=== PATIENT | female | born 1960 | race Caucasian/White ===

== ENCOUNTER 2016-12-21 15:47 | Emergency (ER) | payer OTHER ==
[2016-12-21] MEDS ORDERED: HYDROmorphone 1 MG/ML 1 ML SYRINGE IVP STA (16:18)
[2016-12-21] MEDS ORDERED: ONDANSETRON 4 MG/2 ML VIAL IVP STA (16:18)
[2016-12-21] MEDS ORDERED: SODIUM CHLORIDE 0.9% 1,000 ML IV STA (16:18)
[2016-12-21 16:30] LABS: Basophils % (A) 0 %; CH 28.6; CHCM 33.6; Eosinophils # (A) 0.4 k/uL (0-0.7); Eosinophils % (A) 4 %; HCT 41.1 % (34.0-46.0); HDW 2.33; HGB 14.1 gm/dL (11.4-16.0); Luc % (Auto) 1; Lymphocytes # (A) 2.3 k/uL (1.0-4.8); Lymphocytes % (A) 24 %; MCH 29.2 pg (25.0-35.0); MCHC 34.2 g/dL (31.0-37.0); MCV 85.5 fL (80.0-100.0); Mean Platelet Volume 10.6; Monocytes # (A) 0.3 k/uL (0-1.0); Monocytes % (A) 3 %; Neutrophils # (A) 6.8 k/uL (1.3-7.7); Neutrophils % (A) 68 %; RBC 4.81 m/uL (3.80-5.40); RDW 13.6 % (11.5-15.5); WBC (Perox) 9.64
[2016-12-21 16:40] LABS: ALT 28 U/L (9-52); AST 26 U/L (14-36); Alkaline Phosphatase 81 U/L (38-126); Amylase 40 U/L (30-110); Anion Gap 10 mmol/L; Blood Urea Nitrogen 19 mg/dL (7-17); Calcium 9.3 mg/dL (8.4-10.2); Carbon Dioxide 25 mmol/L (22-30); Chloride 109 mmol/L (98-107); Glucose 87 mg/dL (74-99); Non-African American GFR(MDRD) >60 (>60 ml/min/1.73 sqM); Potassium 4.3 mmol/L (3.5-5.1); Sodium 144 mmol/L (137-145); Total Bilirubin 0.6 mg/dL (0.2-1.3); Total Protein 7.1 g/dL (6.3-8.2)
[2016-12-21 16:46] LABS: Appearance,Urine Clear (Clear); Bacteria,Urine Occasional /hpf; Bilirubin,Urine Negative (Negative); Glucose,Urine (UA) Negative (Negative); Ketones,Urine Negative (Negative); Leukocyte Esterase,Urine Large (Negative); Mucus,Urine Rare /hpf; Nitrite,Urine Negative (Negative); PH, Urine 5.5 (5.0-8.0); Particle Count 5680; Protein,Urine Negative (Negative); RBC,Urine 2 /hpf (0-5); Specific Gravity,Urine 1.015 (1.001-1.035); Squamous Epithelial Cell,Urine 1 /hpf (0-4); UA Billing (MACRO vs. MICRO) MICRO; Urobilinogen,Urine <2.0 mg/dL (<2.0); WBC,Urine 58 /hpf (0-5)
--- NOTE | 2016-12-21 16:52 | ED ---
Abdominal Pain HPI - General Chief Complaint: Abdominal Pain Stated Complaint: abdominal pain Time Seen by Provider: 12/21/16 16:11 Source: patient, RN notes reviewed Mode of arrival: ambulatory Limitations: no limitations - History of Present Illness Initial Comments: 56-year-old female presents to the emergency Department chief complaint of abdominal pain in periodic nausea vomiting. Patient states the pain is in the center of the abdomen and radiates to the back. Patient states that she recently did have an alcohol. Patient states the pain started last night. Patient ate that it will come and go at random. Patient states she's had HIDA scans that state that her gallbladder female who is it normally should but it does not meaning that she should have surgery so they have been holding off. Patient states his been no other surgeries on the abdomen. Patient denies any fever chills with this. Patient denies any chest pain or shortness of breath. Patient states she was concerned due to her symptoms so she thought that she should be evaluated. Patient denies any recent fever, chills, shortness of breath, chest pain, back pain, numbness or tingling, dysuria or hematuria, constipation or diarrhea, headaches or visual changes, or any other current symptoms. - Related Data Home Medications Medication Instructions Recorded Confirmed Loratadine [Claritin] 10 mg PO DAILY 12/21/16 12/21/16 Losartan-Hctz 50-12.5 mg [Hyzaar 1 tab PO DAILY 12/21/16 12/21/16 50-12.5] Pantoprazole Sodium [Protonix] 40 mg PO DAILY 12/21/16 12/21/16 Simvastatin [Zocor] 20 mg PO DAILY 12/21/16 12/21/16 Previous Rx's Medication Instructions Recorded Ciprofloxacin HCl [Cipro] 500 mg PO Q12HR #14 tablet 12/21/16 Allergies Allergy/AdvReac Type Severity Reaction Status Date / Time No Known Allergies Allergy Verified 12/21/16 16:10 Review of Systems ROS Statement: Those systems with pertinent positive or pertinent negative responses have been documented in the HPI. ROS Other: All systems not noted in ROS Statement are negative. Past Medical History Past Medical History: Hyperlipidemia, Hypertension History of Any Multi-Drug Resistant Organisms: None Reported Past Surgical History: Section, Tubal Ligation Past Psychological History: No Psychological Hx Reported Smoking Status: Former smoker Past Alcohol Use History: None Reported Past Drug Use History: None Reported General Exam - General Exam Comments Initial Comments: General: The patient is awake and alert, in no distress, and does not appear acutely ill. Eye: Pupils are equal, round and reactive to light, extra-ocular movements are intact; there is normal conjunctiva bilaterally. No signs of icterus. Ears, nose, mouth and throat: There are moist mucous membranes and no oral lesions. Neck: The neck is supple, there is no tenderness. Cardiovascular: There is a regular rate and rhythm. No murmur, rub or gallop is appreciated. Respiratory: Lungs are clear to auscultation, respirations are non-labored, breath sounds are equal. No wheezes, stridor, rales, or rhonchi. Gastrointestinal: Soft, non-distended, mild epigastric tenderness of the abdomen without masses or organomegaly noted. There is no rebound or guarding present. On the left CVA tenderness. Bowel sounds are unremarkable. Back: There is no tenderness to palpation in the midline. There is no obvious deformity. No rashes noted. Musculoskeletal: Normal ROM, no tenderness, There is no pedal edema. There is no calf tenderness or swelling. Sensation intact. Pulses equal bilaterally 2+. Neurological: CN II-XII intact, There are no obvious motor or sensory deficits. Coordination appears grossly intact. Speech is normal. Skin: Skin is warm and dry and no rashes or lesions are noted. Psychiatric: Cooperative, appropriate mood & affect, normal judgment. Limitations: no limitations Course Vital Signs 12/21/16 12/21/16 12/21/16 15:52 16:38 17:52 Temperature 97.8 F Pulse Rate 89 77 72 Respiratory 20 16 18 Rate Blood Pressure 161/73 170/85 165/70 O2 Sat by Pulse 99 95 95 Oximetry Medical Decision Making - Medical Decision Making 56-year-old female presents emergency Department chief complaint of abdominal pain nausea and vomiting as well as some lab work is reviewed as well as CAT scan. This time patient does have cholelithiasis however there is no white blood cell count patient does not have a positive Waterman sign. Patient however does have left flank pain and she does appear to have UTI. This time we do give patient Rocephin was started on antibiotics for home. We did discuss close follow-up return parameters and all the patient's questions. She stated that she understood and she is in agreement with the plan. This time the patient will be discharged.. - Lab Data Result diagrams: 12/21/16 16:14 12/21/16 16:14 Lab Results 12/21/16 12/21/16 12/21/16 Range/Units 16:14 16:14 16:30 WBC 10.0 (3.8-10.6) k/uL RBC 4.81 (3.80-5.40) m/uL Hgb 14.1 (11.4-16.0) gm/dL Hct 41.1 (34.0-46.0) % MCV 85.5 (80.0-100.0) fL MCH 29.2 (25.0-35.0) pg MCHC 34.2 (31.0-37.0) g/dL RDW 13.6 (11.5-15.5) % Plt Count 154 (150-450) k/uL Neutrophils % 68 % Lymphocytes % 24 % Monocytes % 3 % Eosinophils % 4 % Basophils % 0 % Neutrophils # 6.8 (1.3-7.7) k/uL Lymphocytes # 2.3 (1.0-4.8) k/uL Monocytes # 0.3 (0-1.0) k/uL Eosinophils # 0.4 (0-0.7) k/uL Basophils # 0.0 (0-0.2) k/uL Sodium 144 (137-145) mmol/L Potassium 4.3 (3.5-5.1) mmol/L Chloride 109 H (98-107) mmol/L Carbon Dioxide 25 (22-30) mmol/L Anion Gap 10 mmol/L BUN 19 H (7-17) mg/dL Creatinine 0.71 (0.52-1.04) mg/dL Est GFR (MDRD) Af Amer >60 (>60 ml/min/1.73 sqM) Est GFR (MDRD) Non-Af >60 (>60 ml/min/1.73 sqM) Glucose 87 (74-99) mg/dL Calcium 9.3 (8.4-10.2) mg/dL Total Bilirubin 0.6 (0.2-1.3) mg/dL AST 26 (14-36) U/L ALT 28 (9-52) U/L Alkaline Phosphatase 81 (38-126) U/L Total Protein 7.1 (6.3-8.2) g/dL Albumin 4.1 (3.5-5.0) g/dL Amylase 40 (30-110) U/L Lipase 66 (23-300) U/L Urine Color Yellow Urine Appearance Clear (Clear) Urine pH 5.5 (5.0-8.0) Ur Specific [place] 1.015 (1.001-1.035) Urine Protein Negative (Negative) Urine Glucose (UA) Negative (Negative) Urine Ketones Negative (Negative) Urine Blood Trace H (Negative) Urine Nitrite Negative (Negative) Urine Bilirubin Negative (Negative) Urine Urobilinogen <2.0 (<2.0) mg/dL Ur Leukocyte Esterase Large H (Negative) Urine RBC 2 (0-5) /hpf Urine WBC 58 H (0-5) /hpf Ur Squamous Epith Cells 1 (0-4) /hpf Urine Bacteria Occasional H (None) /hpf Urine Mucus Rare H (None) /hpf - EKG Data -: EKG Interpreted by Me 12/21/16 17:51 normal sinus rhythm 65 bpm, normal axis, no atopy, no S-T depressions or elevations, Disposition Clinical Impression: UTI (urinary tract infection), Abdominal pain, Gastritis, Cholelithiasis Disposition: HOME SELF-CARE Condition: Stable Instructions: Urinary Tract Infection in Women (ED), Abdominal Pain (ED) Additional Instructions: Please use medication as discussed. Please follow up with family doctor if symptoms have not improved over the next two days. Please return to the emergency room if your symptoms increase or worsen or for any other concerns. Prescriptions: Ciprofloxacin HCl [Cipro] 500 mg PO Q12HR #14 tablet Referrals: Сергей Farrar DO [Primary Care Provider] - 1-2 days Time of Disposition: 18:26
--- NOTE | 2016-12-21 17:14 | CT ---
EXAMINATION TYPE: CT abdomen pelvis wo con DATE OF EXAM: 12/21/2016 COMPARISON: NONE HISTORY: Burning sensation in the abdomen for [address] DLP: 1827.7 mGycm Examination of the solid and hollow viscera is limited given the lack of contrast. FINDINGS: LUNG BASES: No evidence for nodule. No evidence for infiltrate. LIVER/GB: There is evidence of cholelithiasis. No wall thickening or pericholecystic fluid. No space- occupying hepatic lesion. PANCREAS: No pancreatic mass identified. No inflammatory process seen. SPLEEN: No evidence for splenomegaly. No intrasplenic lesions seen. Splenic granulomas identified. ADRENALS: No adrenal nodules identified. No evidence for thickening. KIDNEYS: No evidence for renal mass. No nephrolithiasis. No hydronephrosis. BOWEL: Appendix has a normal appearance. No evidence of bowel obstruction. No inflammatory process. Lymph nodes: No evidence for adenopathy greater than 1 cm. Abdominal aorta: Atheromatous changes seen. No evidence for aneurysm. Genital organs: No significant abnormality. Other: No significant abnormality. IMPRESSION: ACUTE INTRA-ABDOMINAL PROCESS. CHOLELITHIASIS.
[2016-12-21] MEDS ORDERED: FAMOTIDINE 20 MG/2 ML VIAL IV STA (17:23)
[2016-12-21 17:53] VITALS: BP 165/70; PULSE 72; RESP 18
[2016-12-21 19:06] VITALS: TEMP 98
== END 2016-12-21 18:30 | disposition home or self-care (01) ==
LOC: EC 15:47
DX: K29.70 Gastritis, unspecified, without bleeding (principal); K80.20 Calculus of gallbladder without cholecystitis without obstruction; N39.0 Urinary tract infection, site not specified; I10 Essential (primary) hypertension; E78.5 Hyperlipidemia, unspecified; Z79.899 Other long term (current) drug therapy; Z87.891 Personal history of nicotine dependence
CPT/HCPCS: 99284; 96365; 96375 ×3; 96361; 36415; 93005; 80053; 82150; 83690; 85025; 81001; 74176; J2405; J0696; J1170

== ENCOUNTER 2017-01-15 09:54 | Day surgery (SDC) | payer OTHER ==
[2017-01-12 12:22] VITALS: BMI 47.6
[~2017-01-15 09:54] MED LIST: DEXAMETHASONE SOD PHOSPHATE 10 MG/ML 1 ML VIAL IV ONE; HEPARIN SODIUM,PORCINE 5,000 UNIT/ML 1 ML VIAL SQ ONE; HYDROmorphone 1 MG/ML 1 ML SYRINGE IVP PRN; LACTATED RINGERS 1,000 ML IV SCH; LIDOCAINE 1% 20 ML VIAL (10MG/ML) FOR IV START INTRADERMA PRN; ONDANSETRON 4 MG/2 ML VIAL IVP ONE; SCOPOLAMINE 1.5MG/72HR PATCH TRANSDERM ONE; ceFAZolin 2 GM in SODIUM CHLORIDE 0.9% 100 ML IVPB ONE
[2017-01-15] MEDS ORDERED: LACTATED RINGERS 1,000 ML IV ONE ×2 (10:24→12:11)
--- NOTE | 2017-01-15 10:49 | P.GSHP ---
History of Present Illness H&P Date: 01/15/17 Chief Complaint: Right upper quadrant pain This a 56-year-old female referred from Dr. Сергей Koenig. Patient rents were pain. Her recent ultrasound shows evidence of cholelithiasis. Past Medical History Past Medical History: GERD/Reflux, Hyperlipidemia, Hypertension, Osteoarthritis (OA) Additional Past Medical History / Comment(s): lesions on thyroid- is being watched History of Any Multi-Drug Resistant Organisms: None Reported Past Surgical History: Section, Tubal Ligation Past Anesthesia/Blood Transfusion Reactions: No Reported Reaction Smoking Status: Former smoker - Past Family History Mother Family Medical History: No Reported History Medications and Allergies Home Medications Medication Instructions Recorded Confirmed Type Loratadine [Claritin] 10 mg PO DAILY 12/21/16 01/12/17 History Losartan-Hctz 50-12.5 mg [Hyzaar 1 tab PO DAILY 12/21/16 01/12/17 History 50-12.5] Simvastatin [Zocor] 20 mg PO DAILY 12/21/16 01/12/17 History Allergies Allergy/AdvReac Type Severity Reaction Status Date / Time No Known Allergies Allergy Verified 01/12/17 12:10 Surgical - Exam Vital Signs Temp Pulse Resp BP Pulse Ox 97.8 F 85 18 161/90 99 01/15/17 10:23 01/15/17 10:23 01/15/17 10:23 01/15/17 10:23 01/15/17 10:23 - General well developed, no distress - Eyes PERRL - ENT normal pinna - Neck no masses - Respiratory normal expansion - Cardiovascular Rhythm: regular - Abdomen Abdomen: soft, non tender Assessment and Plan Plan: Right upper quadrant pain Cholelithiasis We'll perform laparoscopic cholecystectomy
[2017-01-15] MEDS ORDERED: NEOSTIGMINE 1 MG/ML 10 ML VIAL ONE (11:33)
[2017-01-15] MEDS ORDERED: MIDAZOLAM 2 MG/2 ML VIAL ONE (11:33)
[2017-01-15] MEDS ORDERED: GLYCOPYRROLATE 0.2 MG/ML 2 ML VIAL ONE (11:33)
[2017-01-15] MEDS ORDERED: PROPOFOL 10 MG/ML 20 ML VIAL IV ONE (11:33)
[2017-01-15] MEDS ORDERED: SODIUM CHLORIDE 0.9% 250 ML with ceFAZolin 2,000 MG IV ONE ×2 (11:33)
[2017-01-15] MEDS ORDERED: SUCCINYLCHOLINE CHLORIDE 100 MG/5 ML SYR IV ONE (11:33)
[2017-01-15] MEDS ORDERED: fentaNYL (PF) 50 MCG/ML 2 ML AMP ONE (11:33)
[2017-01-15] MEDS ORDERED: LIDOCAINE 1% INJ 10MG/ML (20 ML MDV) ONE (11:33)
[2017-01-15] MEDS ORDERED: ROCURONIUM BROMIDE 10 MG/ML 10 ML VIAL IV ONE (11:33)
[2017-01-15] MEDS ORDERED: KETOROLAC 30 MG/ML 1 ML VIAL ONE (11:33)
[2017-01-15] MEDS ORDERED: BUPIVACAIN-EPI 0.25%-1:200,000 30 ML VIAL SQ ONE (11:53)
--- NOTE | 2017-01-15 12:12 | P.OP ---
Date of Procedure: 01/15/17 Preoperative Diagnosis: Cholelithiasis Postoperative Diagnosis: Cholelithiasis Procedure(s) Performed: Laparoscopic cholecystectomy Implants: Anesthesia: JUAN MIGUEL Surgeon: Brigido Carmona Estimated Blood Loss (ml): 5 Pathology: other (Gallbladder) Condition: stable (Stable) Indications for Procedure: Operative Findings: Description of Procedure: The patient was placed on the operating table. The patient received a general endotracheal tube anesthesia. The patients abdomen was prepped and draped in the usual sterile fashion. Through an infraumbilical stab incision, the fascia of the anterior abdominal wall was grasped with a pair of Kochers and then the Veress needle was placed in the peritoneal cavity. Position of the Veress needle was confirmed with positive drop test. The abdomen was then insufflated. After adequate insufflation, the 10 mm trocar was placed in the peritoneal cavity. Following this the laparoscope was placed in the peritoneal cavity. The patient was placed in the head-up, right side up position and then a 5 mm trocar was placed in the right lateral and right subcostal position under direct visualization. A 8 mm trocar was placed in the epigastric position. The gallbladder was grasped in the fundus and infundibulum. Traction on the gallbladder was placed in the lateral and the cephalad positions. The triangle of Calot was visualized.. The cystic duct was bluntly dissected until the union of the cystic duct and common bile duct was seen. The cystic duct was then divided and sealed with the Harmonic scissors. A PDS Endoloop was then placed throughout the cystic duct stump. The cystic artery divided and sealed with the Harmonic scissors. The gallbladder was then removed from the liver bed using Harmonic scissors. The gallbladder was then extracted through the epigastric port site. Operative field was checked for any bleeding spots and Harmonic scissors was used to coagulate the liver bed. The abdomen was irrigated. The trocars were removed. The skin was closed using interrupted 3-0 Vicryl suture. Dermabond dressing were applied. The patient tolerated the procedure well.
[2017-01-15 12:31] VITALS: TEMP 97.7
[2017-01-15] MEDS ORDERED: KETOROLAC 30 MG/ML 1 ML VIAL IVP ONE (12:53)
[2017-01-15] MEDS ORDERED: HYDROcodone/APAP 7.5-325MG 1 EACH TAB PO ONE (13:19)
[2017-01-15 13:42] VITALS: BP 155/74; PULSE 67; RESP 16
== END 2017-01-15 13:54 | disposition home or self-care (01) ==
LOC: OR 09:54
PROVIDERS: ATTEND Surgery
DX: K80.10 Calculus of gallbladder with chronic cholecystitis without obstruction (principal); K21.9 Gastro-esophageal reflux disease without esophagitis; E78.5 Hyperlipidemia, unspecified; I10 Essential (primary) hypertension; Z87.891 Personal history of nicotine dependence; Z79.891 Long term (current) use of opiate analgesic; Z79.899 Other long term (current) drug therapy
CPT/HCPCS: 88304; 47562; J2250; J1644; J1100; J2710; J2405; J2001; J3010; J1885; J0690; J0330; J2704

== ENCOUNTER → 2017-02-16 | Outpatient (CLI) | payer OTHER ==
[2017-02-16 16:11] VITALS: BP 168/77; PULSE 79; RESP 20; TEMP 97.9; BMI 47.8
--- NOTE | 2017-02-16 16:16 | P.HPBAR ---
Bariatric H&P - History & Physicial H&P Date: 02/16/17 History & Physicial: Visit/CC: pursuing sleeve Patient initial contact: Initial weight: 102.058 kg Initial weight in pounds: 225.00 Height: 4 ft 9.5 in Initial BMI: 47.8 Last weight: Current weight: 102.058 kg Current weight in pounds: 225.00 Current BMI: 47.8 [place] body weight (based on NIH guidelines): 39.689 kg Excess body weight loss: 0.0% The patient is a 56 year-old F who presents for Bariatric Assessment. Patient presents today for new patient sleeve gastrectomy consultation. The patient's had lifetime problems obesity. Her BMI is 48. She is requesting sleeve gastrectomy. Review of Systems Constitutional: Reports as per HPI Past Medical History Past Medical History: GERD/Reflux, Hyperlipidemia, Hypertension, Osteoarthritis (OA) Additional Past Medical History / Comment(s): lesions on thyroid- is being watched History of Any Multi-Drug Resistant Organisms: None Reported Past Surgical History: Section, Tubal Ligation Past Anesthesia/Blood Transfusion Reactions: No Reported Reaction Smoking Status: Former smoker - Past Family History Mother Family Medical History: No Reported History Surgical - Exam Vital Signs Temp Pulse Resp BP 97.9 F 79 20 168/77 02/16/17 15:52 02/16/17 15:52 02/16/17 15:52 02/16/17 15:52 - General well developed, no distress - Eyes PERRL - Abdomen Abdomen: soft, non tender Bariatric Assessment & Plan Plan: Morbid obesity with BMI 48. Patient will be authorized for sleeve gastrectomy. We had a lengthy discussion regarding the risks and benefits of sleeve gastrectomy. She will follow-up in month. Bariatric Checklist Checklist: Plan: Checklist: EGD: 1. Hiatal hernia: 2. H. Pylori: HgbA1c: Vitamin D: Smoking: Former smoker Primary care physician referral: Dr Farrar Psychiatry clearance: Cardiology clearance: Sleep study: Diet journal: VTE risk score: VTE risk level: Rehab needs at discharge:
== END | disposition home or self-care (01) ==
LOC: BARWHC3 15:01
PROVIDERS: ATTEND Surgery
DX: E66.01 Morbid (severe) obesity due to excess calories (principal); K21.9 Gastro-esophageal reflux disease without esophagitis; E78.5 Hyperlipidemia, unspecified; I10 Essential (primary) hypertension; Z87.891 Personal history of nicotine dependence; Z68.42 Body mass index [BMI] 45.0-49.9, adult
CPT/HCPCS: 99201

== ENCOUNTER 2017-02-25 09:56 | Day surgery (SDC) | payer OTHER ==
[2017-02-20 13:17] VITALS: BMI 47.0
[~2017-02-25 09:56] MED LIST changes: -DEXAMETHASONE SOD PHOSPHATE 10 MG/ML 1 ML VIAL IV ONE; -HEPARIN SODIUM,PORCINE 5,000 UNIT/ML 1 ML VIAL SQ ONE; -HYDROmorphone 1 MG/ML 1 ML SYRINGE IVP PRN; +LACTATED RINGERS 1,000 ML IV ONE; -LACTATED RINGERS 1,000 ML IV SCH; -LIDOCAINE 1% 20 ML VIAL (10MG/ML) FOR IV START INTRADERMA PRN; -ONDANSETRON 4 MG/2 ML VIAL IVP ONE; -SCOPOLAMINE 1.5MG/72HR PATCH TRANSDERM ONE; -ceFAZolin 2 GM in SODIUM CHLORIDE 0.9% 100 ML IVPB ONE
[2017-02-25 10:22] VITALS: TEMP 98.7
[2017-02-25] MEDS ORDERED: LIDOCAINE 1% 20 ML VIAL (10MG/ML) FOR IV START INTRADERMA ONE (10:32)
[2017-02-25] MEDS ORDERED: PROPOFOL 10 MG/ML 20 ML VIAL IV ONE (11:40)
--- NOTE | 2017-02-25 11:41 | P.GSHP ---
History of Present Illness H&P Date: 02/25/17 Chief Complaint: GERD, morbid obesity This a 56-year-old female who presents today for EGD. She's had issues with GERD. Patient is morbidly obese with BMI of 47. She is undergoing workup for sleeve gastrectomy. Past Medical History Past Medical History: GERD/Reflux, Hyperlipidemia, Hypertension, Osteoarthritis (OA) Additional Past Medical History / Comment(s): lesions on thyroid- is being watched History of Any Multi-Drug Resistant Organisms: None Reported Past Surgical History: Section, Cholecystectomy, Tubal Ligation Past Anesthesia/Blood Transfusion Reactions: No Reported Reaction Smoking Status: Former smoker - Past Family History Mother Family Medical History: No Reported History Medications and Allergies Home Medications Medication Instructions Recorded Confirmed Type Loratadine [Claritin] 10 mg PO DAILY 12/21/16 02/25/17 History Losartan-Hctz 50-12.5 mg [Hyzaar 1 tab PO DAILY 12/21/16 02/20/17 History 50-12.5] Simvastatin [Zocor] 20 mg PO DAILY 12/21/16 02/25/17 History Biotin 10,000 mcg PO DAILY 02/20/17 02/25/17 History Glucosam/Chond/Hyalu/Cf Borate 1 each PO DAILY 02/20/17 02/25/17 History [Move Free Joint Health Tablet] Allergies Allergy/AdvReac Type Severity Reaction Status Date / Time No Known Allergies Allergy Verified 02/25/17 10:15 Surgical - Exam Vital Signs Temp Pulse Resp BP Pulse Ox 98.7 F 76 18 152/92 93 L 02/25/17 10:21 02/25/17 10:21 02/25/17 10:21 02/25/17 10:21 02/25/17 10:21 - General well developed, no distress - Eyes PERRL - ENT normal pinna - Neck no masses - Respiratory normal expansion - Cardiovascular Rhythm: regular - Abdomen Abdomen: soft, non tender Assessment and Plan Plan: GERD Morbid obesity. We'll perform EGD.
--- NOTE | 2017-02-25 11:54 | P.OP ---
Date of Procedure: 02/25/17 Preoperative Diagnosis: Morbid obesity GERD Postoperative Diagnosis: Antral gastritis Mild esophagitis No evidence of hiatal hernia Procedure(s) Performed: EGD Implants: Anesthesia: MAC Surgeon: Brigido Carmona Pathology: other (Antrum, esophagus) Condition: stable Disposition: PACU Indications for Procedure: Operative Findings: Description of Procedure: The patient's placed on the endoscopy table in the lateral position. She received IV sedation. The gastroscope placed oropharynx passed in the esophagus and the stomach. The scope was placed through the pylorus. The first second portion of the duodenum appeared normal. Scope was then brought back the antrum this was mildly inflamed. A biopsies performed. The scope was then retroflexed and the remainder stomach appeared normal. There was no significant hiatal hernia. The GE junction was at 47 is. The distal esophagus appeared minimally inflamed a biopsies performed. The proximal esophagus appeared normal. Scope was withdrawn for patient.
[2017-02-25 12:16] VITALS: BP 154/80; PULSE 65; RESP 18
== END 2017-02-25 12:35 | disposition home or self-care (01) ==
LOC: ORWHC2ENDO 09:56
PROVIDERS: ATTEND Surgery
DX: K29.50 Unspecified chronic gastritis without bleeding (principal); K21.0 Gastro-esophageal reflux disease with esophagitis; K20.0 Eosinophilic esophagitis; I10 Essential (primary) hypertension; E78.5 Hyperlipidemia, unspecified; M19.90 Unspecified osteoarthritis, unspecified site; E66.01 Morbid (severe) obesity due to excess calories; Z68.42 Body mass index [BMI] 45.0-49.9, adult; Z87.891 Personal history of nicotine dependence; Z79.899 Other long term (current) drug therapy
CPT/HCPCS: 88305; 88342; 43239; J2704

== ENCOUNTER → 2017-06-29 | Outpatient (CLI) | payer OTHER ==
[2017-06-29 15:53] VITALS: BMI 42.4
[2017-06-29 15:59] VITALS: BP 126/83; PULSE 66; TEMP 97.9
--- NOTE | 2017-06-29 17:04 | P.HPBAR ---
Bariatric H&P - History & Physicial H&P Date: 06/29/17 History & Physicial: Visit/CC: one month follow up Patient initial contact: Initial weight: 102.058 kg Initial weight in pounds: 224.99 Height: 4 ft 9.5 in Initial BMI: 47.8 Last weight: Current weight: 90.446 kg Current weight in pounds: 199.40 Current BMI: 42.4 [place] body weight (based on NIH guidelines): 39.689 kg Excess body weight loss: 18.6% The patient is a 56 year-old F who presents for Bariatric Assessment. Patient' s complaints of GERD. She denies a significant dysphagia. Past Medical History Past Medical History: GERD/Reflux, Hyperlipidemia, Hypertension, Osteoarthritis (OA) Additional Past Medical History / Comment(s): lesions on thyroid- is being watched History of Any Multi-Drug Resistant Organisms: None Reported Past Surgical History: Section, Cholecystectomy, Tubal Ligation Past Anesthesia/Blood Transfusion Reactions: No Reported Reaction Additional Past Anesthesia/Blood Transfusion Reaction / Comm: no hx blood transfusion. Smoking Status: Former smoker - Past Family History Mother Family Medical History: No Reported History Surgical - Exam Vital Signs Temp Pulse BP 97.9 F 66 126/83 06/29/17 15:57 06/29/17 15:57 06/29/17 15:57 - General well developed, no distress - Eyes PERRL - ENT normal pinna - Neck no masses - Respiratory normal expansion - Cardiovascular Rhythm: regular - Abdomen Abdomen: soft, non tender Bariatric Assessment & Plan Plan: Status post sleeve gastrectomy. Patient has GERD. Her esophagram performed today shows no evidence of any gastric sleeve obstruction. She'll be scheduled for EGD Bariatric Checklist Checklist: Plan: Checklist: EGD: 1. Hiatal hernia: 2. H. Pylori: HgbA1c: Vitamin D: Smoking: Former smoker Primary care physician referral: Dr Farrar Psychiatry clearance: Cardiology clearance: Sleep study: Diet journal: VTE risk score: VTE risk level: Rehab needs at discharge:
--- NOTE | 2017-06-29 17:23 | FL ---
EXAMINATION TYPE: FL barium swallow DATE OF EXAM: 06/29/2017 CLINICAL HISTORY: Dysphasia TECHNIQUE: A double contrast esophagram is performed utilizing air and barium. A total of 36 second s of fluoroscopic time was utilized during procedure. Approximately 15 images. COMPARISON: None FINDINGS: Appears to be no evidence of obstruction or extravasation. There is some mild irregularity at the GE junction which should be correlated with the patient's recent reported endoscopy to exclude mucosal abnormality. Contrast was seen to spill freely into the stomach and subsequently into small bowel. IMPRESSION: 1. There is prompt spillage of contrast from the esophagus into the stomach with no obstruction. Slig ht mucosal irregularity at the level of the GE junction noted which should be correlated with the pat ient's reported history of recent endoscopy.
== END | disposition home or self-care (01) ==
LOC: BARWHC3 14:33
PROVIDERS: ATTEND Surgery
DX: K21.9 Gastro-esophageal reflux disease without esophagitis (principal); E78.5 Hyperlipidemia, unspecified; I10 Essential (primary) hypertension; M19.90 Unspecified osteoarthritis, unspecified site; Z98.84 Bariatric surgery status; Z87.891 Personal history of nicotine dependence
CPT/HCPCS: 74220; 97803; Q9967; G0463; 99211

== ENCOUNTER 2017-07-02 10:48 | Day surgery (SDC) | payer OTHER ==
[~2017-07-02 10:48] MED LIST changes: -LACTATED RINGERS 1,000 ML IV ONE; +LACTATED RINGERS 1,000 ML IV SCH; +LIDOCAINE 1% 20 ML VIAL (10MG/ML) FOR IV START INTRADERMA PRN
[2017-07-02 11:17] VITALS: TEMP 97.5
[2017-07-02] MEDS ORDERED: LIDOCAINE 1% 20 ML VIAL (10MG/ML) FOR IV START INTRADERMA ONE (11:26)
[2017-07-02] MEDS ORDERED: PROPOFOL 10 MG/ML 20 ML VIAL IV ONE (11:52)
--- NOTE | 2017-07-02 11:58 | P.GSHP ---
History of Present Illness H&P Date: 07/02/17 Chief Complaint: Dysphagia, GERD This is a 56-year-old female who presents today for EGD the patient had complaints of dysphagia. She underwent recent sleeve gastrectomy. Past Medical History Past Medical History: GERD/Reflux, Hyperlipidemia, Hypertension, Osteoarthritis (OA) Additional Past Medical History / Comment(s): CURRENT: SEVERE REFLUX. lesions on thyroid- is being watched History of Any Multi-Drug Resistant Organisms: None Reported Past Surgical History: Section, Cholecystectomy, Tubal Ligation Additional Past Surgical History / Comment(s): 05.28.17 GASTRIC SLEEVE Past Anesthesia/Blood Transfusion Reactions: No Reported Reaction Additional Past Anesthesia/Blood Transfusion Reaction / Comment(s): no hx blood transfusion. Past Psychological History: No Psychological Hx Reported Smoking Status: Former smoker Past Alcohol Use History: Occasional Additional Past Alcohol Use History / Comment(s): quit smoking 2005, smoked for 30 yrs. 1ppd Past Drug Use History: None Reported - Past Family History Mother Family Medical History: No Reported History Medications and Allergies Home Medications Medication Instructions Recorded Confirmed Type Simvastatin [Zocor] 20 mg PO DAILY 12/21/16 07/02/17 History Multivitamins, Thera [Multivitamin 1 tab PO DAILY 05/25/17 07/02/17 History (formulary)] Hydrochlorothiazide 12.5 mg PO QAM 06/30/17 07/02/17 History Omeprazole [Omeprazole] 40 mg PO QAM 06/30/17 07/02/17 History Allergies Allergy/AdvReac Type Severity Reaction Status Date / Time No Known Allergies Allergy Verified 07/02/17 11:07 Surgical - Exam Vital Signs Temp Pulse Resp BP Pulse Ox 97.5 F L 65 18 116/74 95 07/02/17 11:16 07/02/17 11:16 07/02/17 11:16 07/02/17 11:16 07/02/17 11:16 - General well developed, no distress - Eyes PERRL - ENT normal pinna - Neck no masses - Respiratory normal expansion - Cardiovascular Rhythm: regular - Abdomen Abdomen: soft, non tender Assessment and Plan Assessment: Patient. We'll perform EGD.
--- NOTE | 2017-07-02 12:06 | P.OP ---
Date of Procedure: 07/02/17 Preoperative Diagnosis: GERD Postoperative Diagnosis: Mild antral gastritis Mild esophagitis No evidence of hiatal hernia Procedure(s) Performed: EGD Anesthesia: MAC Surgeon: Brigido Carmona Pathology: other (Antrum, esophagus) Condition: stable Disposition: PACU Description of Procedure: The patient's placed on the endoscopy table in the lateral position. She received IV sedation. The gastric was placed oropharynx and passed in the esophagus and into the stomach. The scope was then placed through the pylorus. The first and second portion of the duodenum appeared normal. Scope was then brought back the antrum and this was mildly inflamed. A biopsies performed. The scope was then brought back. Patient appears gastric sleeve. There appeared to be no evidence of any irritation inflammation or stricture of the gastric sleeve. The GE junction was at 47 is. There is known to the hiatal hernia. The distal esophagus appeared mildly inflamed a biopsies performed. The proximal esophagus. Normal. Scope was withdrawn for patient.
[2017-07-02 12:13] VITALS: RESP 16
[2017-07-02 12:27] VITALS: BP 122/74; PULSE 53
== END 2017-07-02 12:33 | disposition home or self-care (01) ==
LOC: ORWHC2ENDO 10:48
PROVIDERS: ATTEND Surgery
DX: K21.0 Gastro-esophageal reflux disease with esophagitis (principal); K29.50 Unspecified chronic gastritis without bleeding; M19.90 Unspecified osteoarthritis, unspecified site; I10 Essential (primary) hypertension; E78.5 Hyperlipidemia, unspecified; Z79.899 Other long term (current) drug therapy; Z87.891 Personal history of nicotine dependence; Z90.3 Acquired absence of stomach [part of]
CPT/HCPCS: 43239; 88305; 88312; J2704

== ENCOUNTER → 2017-09-11 | Outpatient (CLI) | payer OTHER ==
[2017-09-11 11:01] LABS: HCT 43.3 % (34.0-46.0); HGB 13.9 gm/dL (11.4-16.0); MCH 28.4 pg (25.0-35.0); MCHC 32.1 g/dL (31.0-37.0); MCV 88.4 fL (80.0-100.0); Platelet Count 150 k/uL (150-450); RDW 13.5 % (11.5-15.5)
[2017-09-11 11:37] LABS: T4, Free (Free Thyroxine) 1.32 ng/dL (0.78-2.19)
[2017-09-11 11:39] LABS: ALT 24 U/L (9-52); AST 21 U/L (14-36); Alkaline Phosphatase 88 U/L (38-126); Anion Gap 13 mmol/L; Blood Urea Nitrogen 14 mg/dL (7-17); Calcium 9.6 mg/dL (8.4-10.2); Carbon Dioxide 26 mmol/L (22-30); Chloride 104 mmol/L (98-107); Cholesterol 150 mg/dL (<200); Glucose 86 mg/dL (74-99); HDL Cholesterol 43 mg/dL (40-60); LDL Cholesterol,Calculated 78 mg/dL (0-99); Potassium 4.2 mmol/L (3.5-5.1); Sodium 143 mmol/L (137-145); Total Bilirubin 0.4 mg/dL (0.2-1.3); Total Protein 6.8 g/dL (6.3-8.2); Triglycerides 145 mg/dL (<150)
[2017-09-11 16:57] LABS: Vitamin D 25 Hydroxy 20.2 ng/mL (30.0-100.0)
[2017-09-14 07:06] LABS: Vitamin B1 65 ug/L (38-122)
[2017-09-15 05:46] LABS: Vitamin A 52 ug/dL (38-106)
== END | disposition home or self-care (01) ==
LOC: LABWHC1 10:36
PROVIDERS: ATTEND Family Medicine
DX: E78.5 Hyperlipidemia, unspecified (principal); E03.9 Hypothyroidism, unspecified; I10 Essential (primary) hypertension; Z98.84 Bariatric surgery status
CPT/HCPCS: 36415; 80053; 80061; 82306; 82607; 84425; 84439; 84443; 84590; 85027

== ENCOUNTER → 2017-09-14 | Outpatient (CLI) | payer OTHER ==
[2017-09-14 13:28] VITALS: BP 139/82; PULSE 67; RESP 16; TEMP 98.1; BMI 40.4
--- NOTE | 2017-09-14 16:53 | P.HPBAR ---
Bariatric H&P - History & Physicial H&P Date: 09/14/17 History & Physicial: Visit/CC: sleeve follow-up Patient initial contact: Initial weight: 102.058 kg Initial weight in pounds: 225.00 Height: 4 ft 9.5 in Initial BMI: 47.8 Last weight: Current weight: 86.183 kg Current weight in pounds: 190.00 Current BMI: 40.4 [place] body weight (based on NIH guidelines): 39.689 kg Excess body weight loss: 25.4% The patient is a 57 year-old F who presents for Bariatric Assessment. Patient presents today for sleeve gastrectomy fall. She's had some minimal GERD. She' s lost another 10 pounds. Past Medical History Past Medical History: GERD/Reflux, Hyperlipidemia, Hypertension, Osteoarthritis (OA) Additional Past Medical History / Comment(s): CURRENT: SEVERE REFLUX. lesions on thyroid- is being watched History of Any Multi-Drug Resistant Organisms: None Reported Past Surgical History: Section, Cholecystectomy, Tubal Ligation Additional Past Surgical History / Comment(s): 12.7.17 GASTRIC SLEEVE Past Anesthesia/Blood Transfusion Reactions: No Reported Reaction Additional Past Anesthesia/Blood Transfusion Reaction / Comm: no hx blood transfusion. Past Psychological History: No Psychological Hx Reported Smoking Status: Former smoker Past Alcohol Use History: Occasional Additional Past Alcohol Use History / Comment(s): quit smoking 2005, smoked for 30 yrs. 1ppd Past Drug Use History: None Reported - Past Family History Mother Family Medical History: No Reported History Surgical - Exam Vital Signs Temp Pulse Resp BP 98.1 F 67 16 139/82 09/14/17 13:26 09/14/17 13:26 09/14/17 13:26 09/14/17 13:26 - General well developed, no distress - Eyes PERRL - ENT normal pinna, normal nares - Neck no masses - Abdomen Abdomen: soft, non tender Bariatric Assessment & Plan Plan: Patient is doing well. She is under excellent weight loss. Her GERD is minimal will be observed. She'll follow-up in 4 weeks. Bariatric Checklist Checklist: Plan: Checklist: EGD: 1. Hiatal hernia: 2. H. Pylori: HgbA1c: Vitamin D: Smoking: Former smoker Primary care physician referral: Dr Farrar Psychiatry clearance: Cardiology clearance: Sleep study: Diet journal: VTE risk score: VTE risk level: Rehab needs at discharge:
== END | disposition home or self-care (01) ==
LOC: BARWHC3 12:46
PROVIDERS: ATTEND Surgery
DX: Z48.815 Encounter for surgical aftercare following surgery on the digestive system (principal); E66.01 Morbid (severe) obesity due to excess calories; Z87.891 Personal history of nicotine dependence; K21.9 Gastro-esophageal reflux disease without esophagitis; Z71.3 Dietary counseling and surveillance; Z68.41 Body mass index [BMI] 40.0-44.9, adult; Z98.84 Bariatric surgery status
CPT/HCPCS: 97803; G0463; 99211

== ENCOUNTER → 2017-10-07 | Outpatient (CLI) | payer OTHER ==
--- NOTE | 2017-10-07 10:40 | MM ---
Reason for exam: clinical finding. Last mammogram was performed 1 year and 5 months ago. History: Patient is postmenopausal. Family history of breast cancer in maternal grandmother. Physical Findings: Nurse did not find any significant physical abnormalities on exam. MG 3D Diag Mammo W/Cad HAYES Bilateral CC and MLO view(s) were taken. Prior study comparison: May 08, 2016, bilateral MG 3d screening mammo w/cad. May 02, 2011, bilateral digital screening mammo w/CAD. There are scattered fibroglandular densities. No significant new findings when compared with previous films. These results were verbally communicated with the patient and result sheet given to the patient on 10/07/17. ASSESSMENT: Benign, BI-RAD 2 RECOMMENDATION: Routine screening mammogram of both breasts in 1 year.
== END | disposition home or self-care (01) ==
LOC: RADMAMWWP 09:35
PROVIDERS: ATTEND Family Medicine
DX: N64.4 Mastodynia (principal)
CPT/HCPCS: 77066; G0279

== ENCOUNTER → 2017-10-26 | Outpatient (CLI) | payer OTHER ==
[2017-10-26 13:46] VITALS: BP 146/70; PULSE 62; RESP 16; TEMP 98.6; BMI 39.3
--- NOTE | 2017-10-26 15:26 | P.HPBAR ---
Bariatric H&P - History & Physicial H&P Date: 10/26/17 History & Physicial: Visit/CC: sleeve follow-up Patient initial contact: Initial weight: 102.058 kg Initial weight in pounds: 225.00 Height: 4 ft 9.5 in Initial BMI: 47.8 Last weight: Current weight: 83.971 kg Current weight in pounds: 185.13 Current BMI: 39.3 [place] body weight (based on NIH guidelines): 39.689 kg Excess body weight loss: 28.9% The patient is a 57 year-old F who presents for Bariatric Assessment. Patient presents today for sleeve gastric fall. She is doing quite well. She's had some mild GERD. Past Medical History Past Medical History: GERD/Reflux, Hyperlipidemia, Hypertension, Osteoarthritis (OA) Additional Past Medical History / Comment(s): CURRENT: SEVERE REFLUX. lesions on thyroid- is being watched History of Any Multi-Drug Resistant Organisms: None Reported Past Surgical History: Section, Cholecystectomy, Tubal Ligation Additional Past Surgical History / Comment(s): 12.7.17 GASTRIC SLEEVE Past Anesthesia/Blood Transfusion Reactions: No Reported Reaction Additional Past Anesthesia/Blood Transfusion Reaction / Comm: no hx blood transfusion. Past Psychological History: No Psychological Hx Reported Smoking Status: Former smoker Past Alcohol Use History: Occasional Additional Past Alcohol Use History / Comment(s): quit smoking 2005, smoked for 30 yrs. 1ppd Past Drug Use History: None Reported - Past Family History Mother Family Medical History: No Reported History Surgical - Exam Vital Signs Temp Pulse Resp BP 98.6 F 62 16 146/70 10/26/17 13:43 10/26/17 13:43 10/26/17 13:43 10/26/17 13:43 - General well developed, no distress - Eyes PERRL - ENT normal pinna - Neck no masses - Respiratory normal expansion - Cardiovascular Rhythm: regular - Abdomen Abdomen: soft, non tender Bariatric Assessment & Plan Plan: Testicle sleeve gastrectomy. Patient's had excellent weight loss. She'll follow-up in one month. her GERD is minimal and will be observed. Bariatric Checklist Checklist: Plan: Checklist: EGD: 1. Hiatal hernia: 2. H. Pylori: HgbA1c: Vitamin D: Smoking: Former smoker Primary care physician referral: Dr Farrar Psychiatry clearance: Cardiology clearance: Sleep study: Diet journal: VTE risk score: VTE risk level: Rehab needs at discharge:
== END | disposition home or self-care (01) ==
LOC: BARWHC3 13:06
PROVIDERS: ATTEND Surgery
DX: Z09 Encounter for follow-up examination after completed treatment for conditions other than malignant neoplasm (principal); K21.9 Gastro-esophageal reflux disease without esophagitis; E78.5 Hyperlipidemia, unspecified; I10 Essential (primary) hypertension; M19.90 Unspecified osteoarthritis, unspecified site; Z90.49 Acquired absence of other specified parts of digestive tract; Z98.51 Tubal ligation status; Z87.891 Personal history of nicotine dependence; Z98.84 Bariatric surgery status
CPT/HCPCS: 99211

== ENCOUNTER → 2017-11-30 | Outpatient (CLI) | payer OTHER ==
[2017-11-30 14:53] VITALS: BP 130/86; PULSE 67; RESP 16; TEMP 97.7; BMI 38.5
--- NOTE | 2017-11-30 15:06 | P.HPBAR ---
Bariatric H&P - History & Physicial H&P Date: 11/30/17 History & Physicial: Visit/CC: sleeve follow-up Patient initial contact: Initial weight: 102.058 kg Initial weight in pounds: 225.00 Height: 4 ft 9.5 in Initial BMI: 47.8 Last weight: 85 Current weight: 82.1 kg Current weight in pounds: 181.00 Current BMI: 38.5 [place] body weight (based on NIH guidelines): 39.689 kg Excess body weight loss: 31.9% The patient is a 57 year-old F who presents for Bariatric Assessment. They for sleeve gastrectomy follow-up. She has complaints of some hunger. She lost 4 pounds since her last visit. He's had some mild GERD symptoms. Past Medical History Past Medical History: GERD/Reflux, Hyperlipidemia, Hypertension, Osteoarthritis (OA) Additional Past Medical History / Comment(s): CURRENT: SEVERE REFLUX. lesions on thyroid- is being watched History of Any Multi-Drug Resistant Organisms: None Reported Past Surgical History: Section, Cholecystectomy, Tubal Ligation Additional Past Surgical History / Comment(s): 12.7.17 GASTRIC SLEEVE Past Anesthesia/Blood Transfusion Reactions: No Reported Reaction Additional Past Anesthesia/Blood Transfusion Reaction / Comm: no hx blood transfusion. Past Psychological History: No Psychological Hx Reported Smoking Status: Former smoker Past Alcohol Use History: Occasional Additional Past Alcohol Use History / Comment(s): quit smoking 2005, smoked for 30 yrs. 1ppd Past Drug Use History: None Reported - Past Family History Mother Family Medical History: No Reported History Surgical - Exam Vital Signs Temp Pulse Resp BP 97.7 F 67 16 130/86 11/30/17 14:51 11/30/17 14:51 11/30/17 14:51 11/30/17 14:51 - General well developed, no distress - Abdomen Abdomen: soft, non tender Bariatric Assessment & Plan Plan: S for sleeve yesterday. Patient's GERD symptoms are minimal and will be observed. She'll follow-up in 4 weeks. She'll see the dietitian today. Bariatric Checklist Checklist: Plan: Checklist: EGD: 1. Hiatal hernia: 2. H. Pylori: HgbA1c: Vitamin D: Smoking: Former smoker Primary care physician referral: Dr Farrar Psychiatry clearance: Cardiology clearance: Sleep study: Diet journal: VTE risk score: VTE risk level: Rehab needs at discharge:
== END | disposition home or self-care (01) ==
LOC: BARWHC3 14:25
PROVIDERS: ATTEND Surgery
DX: Z48.815 Encounter for surgical aftercare following surgery on the digestive system (principal); T73.0XXA Starvation, initial encounter; K21.9 Gastro-esophageal reflux disease without esophagitis; Z90.49 Acquired absence of other specified parts of digestive tract; Z98.890 Other specified postprocedural states; Z98.84 Bariatric surgery status; Z98.51 Tubal ligation status; Z87.891 Personal history of nicotine dependence
CPT/HCPCS: 97803; G0463; 99211

== ENCOUNTER 2018-01-11 04:30 | Emergency (ER) | payer OTHER ==
[2018-01-11] MEDS ORDERED: MORPHINE SULFATE 2 MG/ML SYRINGE IVP STA (05:32)
[2018-01-11] MEDS ORDERED: ONDANSETRON 4 MG/2 ML VIAL IVP STA (05:32)
[2018-01-11] MEDS ORDERED: SODIUM CHLORIDE 0.9% 1,000 ML IV STA (05:32)
[2018-01-11] MEDS ORDERED: MAG HYDROX/AL HYDROX/SIMETH 30 ML, HYOSCYAMINE ELIXIR 10 ML, CIMETIDINE HCL 300 MG, LID... PO STA ×4 (05:37)
[2018-01-11 06:29] LABS: Basophils % (A) 0 %; Eosinophils # (A) 0.2 k/uL (0-0.7); Eosinophils % (A) 2 %; HGB 15.7 gm/dL (11.4-16.0); Lymphocytes % (A) 18 %; MCH 28.8 pg (25.0-35.0); MCHC 32.6 g/dL (31.0-37.0); MCV 88.3 fL (80.0-100.0); Mean Platelet Volume 10.8; Monocytes # (A) 0.3 k/uL (0-1.0); Monocytes % (A) 3 %; Neutrophils # (A) 8.8 k/uL (1.3-7.7); Neutrophils % (A) 77 %; Platelet Count 140 k/uL (150-450); RBC 5.44 m/uL (3.80-5.40); RDW 12.8 % (11.5-15.5); WBC 11.5 k/uL (3.8-10.6)
[2018-01-11 06:39] LABS: Appearance,Urine Cloudy (Clear); Bilirubin,Urine Negative (Negative); Blood,Urine Trace (Negative); Calcium Oxalate Crystals,Urine Many /hpf; Color,Urine Yellow; Glucose,Urine (UA) Negative (Negative); Ketones,Urine Negative (Negative); Leukocyte Esterase,Urine Moderate (Negative); Mucus,Urine Rare /hpf; Nitrite,Urine Negative (Negative); Protein,Urine Negative (Negative); RBC,Urine 4 /hpf (0-5); Squamous Epithelial Cell,Urine 1 /hpf (0-4); Urobilinogen,Urine <2.0 mg/dL (<2.0); WBC,Urine 6 /hpf (0-5)
--- NOTE | 2018-01-11 06:43 | XR ---
EXAMINATION TYPE: XR KUB DATE OF EXAM: 01/11/2018 COMPARISON: NONE HISTORY: Abdominal pain TECHNIQUE: 2 views FINDINGS: There is no sign of intestinal obstruction or pneumoperitoneum. Fecal pattern is normal. Esthela ng bases are clear. There is no evidence of a mass. There are no pathologic calcifications over the kidneys. IMPRESSION: Nonacute abdomen.
[2018-01-11 06:48] LABS: ALT 28 U/L (9-52); AST 23 U/L (14-36); Albumin 4.1 g/dL (3.5-5.0); Alkaline Phosphatase 92 U/L (38-126); Amylase 52 U/L (30-110); Anion Gap 9 mmol/L; Blood Urea Nitrogen 19 mg/dL (7-17); Calcium 9.8 mg/dL (8.4-10.2); Carbon Dioxide 23 mmol/L (22-30); Chloride 109 mmol/L (98-107); Glucose 118 mg/dL (74-99); Lipase 61 U/L (23-300); Potassium 4.5 mmol/L (3.5-5.1); Sodium 141 mmol/L (137-145); Total Bilirubin 0.4 mg/dL (0.2-1.3)
--- NOTE | 2018-01-11 07:04 | ED ---
Abdominal Pain HPI - General Source: patient Mode of arrival: ambulatory Limitations: no limitations <Kal Nur - Last Filed: 01/11/18 07:26> <John Matute - Last Filed: 01/11/18 08:33> - General Chief Complaint: Abdominal Pain Stated Complaint: upper abd pain Time Seen by Provider: 01/11/18 05:29 - History of Present Illness Initial Comments: 57 years old female woke up with the abdominal pain pain is in epigastric area and the right upper quadrant area and she is nauseous, she stating pain is 10 over 10 he denies any diarrhea constipation no chest pain no shortness of breath no frequency urgency dysuria no symptoms of TIA or CVA (Kal Nur) - Related Data Home Medications Medication Instructions Recorded Confirmed Simvastatin [Zocor] 20 mg PO DAILY 12/21/16 12/01/17 Multivitamins, Thera [Multivitamin 1 tab PO DAILY 05/25/17 12/01/17 (formulary)] Hydrochlorothiazide 12.5 mg PO QAM 06/30/17 12/01/17 Omeprazole 40 mg PO QAM 06/30/17 12/01/17 Allergies Allergy/AdvReac Type Severity Reaction Status Date / Time No Known Allergies Allergy Verified 01/11/18 04:41 Review of Systems ROS Other: All systems not noted in ROS Statement are negative. <Kal Nur - Last Filed: 01/11/18 07:26> ROS Other: All systems not noted in ROS Statement are negative. <John Matute - Last Filed: 01/11/18 08:33> ROS Statement: Those systems with pertinent positive or pertinent negative responses have been documented in the HPI. Past Medical History Past Medical History: GERD/Reflux, Hyperlipidemia, Hypertension, Osteoarthritis (OA) Additional Past Medical History / Comment(s): CURRENT: SEVERE REFLUX. lesions on thyroid- is being watched History of Any Multi-Drug Resistant Organisms: None Reported Past Surgical History: Section, Cholecystectomy, Tubal Ligation Additional Past Surgical History / Comment(s): 05.28.17 GASTRIC SLEEVE Past Anesthesia/Blood Transfusion Reactions: No Reported Reaction Additional Past Anesthesia/Blood Transfusion Reaction / Comment(s): no hx blood transfusion. Past Psychological History: No Psychological Hx Reported Smoking Status: Former smoker Past Alcohol Use History: Occasional Past Drug Use History: None Reported - Past Family History Mother Family Medical History: No Reported History <Kal Nur - Last Filed: 01/11/18 07:26> General Exam Limitations: no limitations <Boom,Kal - Last Filed: 01/11/18 07:26> <John Matute - Last Filed: 01/11/18 08:33> - General Exam Comments Initial Comments: General: The patient is awake and severe distress stating pain is 10 over 10 Skin: Skin is warm and dry and no rashes or lesions are noted. Eye: Pupils are equal, round and reactive to light, extra-ocular movements are intact; there is normal conjunctiva bilaterally. Ears, nose, mouth and throat: There are moist mucous membranes and no oral lesions. Neck: The neck is supple, there is no tenderness or JVD. Cardiovascular: There is a regular rate and rhythm. No murmur, rub or gallop is appreciated. Respiratory: To auscultation bilateral, no wheezing no rhonchi no distress respiratory conley noticed Gastrointestinal: Tender over the right upper quadrant area, epigastric area and left upper quadrant area Back: There is no tenderness to palpation in the midline. There is no obvious deformity. Musculoskeletal: Normal ROM, no tenderness, There is no pedal edema. There is no calf tenderness or swelling. No cords were appreciated. Neurological: CN II-XII intact, Cranial nerves III through XII are intact. There are no obvious motor or sensory deficits. Coordination appears grossly intact. Speech is normal. Psychiatric: Cooperative, appropriate mood & affect, normal judgment. (Kal Nur) Course <Markos Nurhter - Last Filed: 01/11/18 07:26> <John Matute - Last Filed: 01/11/18 08:33> Vital Signs 01/11/18 04:38 Temperature 98.2 F Pulse Rate 64 Respiratory 18 Rate Blood Pressure 169/101 O2 Sat by Pulse 99 Oximetry Jaycee is reassessed at term 7 AM which she feels better but she still complaining about the pain in the upper abdomen, white count is 11.5, his metabolic panel is within normal range urinalysis pending will be was unremarkable. Considering she still have a considerable amount abdominal pain now quite and proceed with CT of the abdomen, will endorse to Dr Matute at 7am ( Kal Nur) Medical Decision Making - Lab Data Result diagrams: 01/11/18 06:19 01/11/18 06:19 <Kal Nur - Last Filed: 01/11/18 07:26> - Lab Data Result diagrams: 01/11/18 06:19 01/11/18 06:19 <John Matute - Last Filed: 01/11/18 08:33> - Medical Decision Making Patient's computed tomography scan of the abdomen and pelvis shows no acute abnormality. I went into reexamine the patient she stated she could still feels some pain but barely any at all. I spoke with Dr. Mathew Carmona wanted to see the patient in the clinic this afternoon I relayed this message to the patient and she was fine with going home now with the understanding that if the pain came back she would come back to the emergency department (John Matute) - Lab Data Lab Results 01/11/18 01/11/18 01/11/18 Range/Units 06:19 06:19 06:19 WBC 11.5 H (3.8-10.6) k/uL RBC 5.44 H (3.80-5.40) m/uL Hgb 15.7 (11.4-16.0) gm/dL Hct 48.0 H (34.0-46.0) % MCV 88.3 (80.0-100.0) fL MCH 28.8 (25.0-35.0) pg MCHC 32.6 (31.0-37.0) g/dL RDW 12.8 (11.5-15.5) % Plt Count 140 L (150-450) k/uL Neutrophils % 77 % Lymphocytes % 18 % Monocytes % 3 % Eosinophils % 2 % Basophils % 0 % Neutrophils # 8.8 H (1.3-7.7) k/uL Lymphocytes # 2.0 (1.0-4.8) k/uL Monocytes # 0.3 (0-1.0) k/uL Eosinophils # 0.2 (0-0.7) k/uL Basophils # 0.0 (0-0.2) k/uL Sodium 141 (137-145) mmol/L Potassium 4.5 (3.5-5.1) mmol/L Chloride 109 H (98-107) mmol/L Carbon Dioxide 23 (22-30) mmol/L Anion Gap 9 mmol/L BUN 19 H (7-17) mg/dL Creatinine 0.70 (0.52-1.04) mg/dL Est GFR (CKD-EPI)AfAm >90 (>60 ml/min/1.73 sqM) Est GFR (CKD-EPI)NonAf >90 (>60 ml/min/1.73 sqM) Glucose 118 H (74-99) mg/dL Calcium 9.8 (8.4-10.2) mg/dL Total Bilirubin 0.4 (0.2-1.3) mg/dL AST 23 (14-36) U/L ALT 28 (9-52) U/L Alkaline Phosphatase 92 (38-126) U/L Total Protein 7.0 (6.3-8.2) g/dL Albumin 4.1 (3.5-5.0) g/dL Amylase 52 (30-110) U/L Lipase 61 (23-300) U/L Urine Color Yellow Urine Appearance Cloudy H (Clear) Urine pH 6.0 (5.0-8.0) Ur Specific [place] 1.020 (1.001-1.035) Urine Protein Negative (Negative) Urine Glucose (UA) Negative (Negative) Urine Ketones Negative (Negative) Urine Blood Trace H (Negative) Urine Nitrite Negative (Negative) Urine Bilirubin Negative (Negative) Urine Urobilinogen <2.0 (<2.0) mg/dL Ur Leukocyte Esterase Moderate H (Negative) Urine RBC 4 (0-5) /hpf Urine WBC 6 H (0-5) /hpf Ur Squamous Epith Cells 1 (0-4) /hpf Calcium Oxalate Crystal Many H (None) /hpf Urine Mucus Rare H (None) /hpf Disposition <Kal Nur - Last Filed: 01/11/18 07:26> Is patient prescribed a controlled substance at d/c from ED?: No Time of Disposition: 08:33 <John Matute - Last Filed: 01/11/18 08:33> Clinical Impression: Abdominal pain Disposition: HOME SELF-CARE Condition: Good Instructions: Abdominal Pain (ED) Referrals: Сергей Farrar DO [Primary Care Provider] - 1-2 days
--- NOTE | 2018-01-11 08:05 | CT ---
EXAMINATION TYPE: CT abdomen pelvis w con DATE OF EXAM: 01/11/2018 COMPARISON: 12/21/2016 INDICATION: Upper abd pain DLP: 1254.5 mGycm, Automated exposure control for dose reduction was used. CONTRAST: 100 mL of Isovue 300. Study performed without Oral Contrast TECHNIQUE: Axial images were obtained from above the diaphragm to the pubic rami in the axial plane a t 5 mm thick sections. Reconstructed images are reviewed on the computer in the coronal plane. FINDINGS: Limited CT sections are obtained the lung bases. The lung bases are clear. Small hiatal hernia is p resent. Gastric sleeve surgery is evident. Coronary artery calcifications present. CT ABDOMEN: Liver: Normal Spleen: Normal Pancreas: Normal Adrenal glands: The adrenal glands are normal. Gallbladder: Patient is status post cholecystectomy. Common bile duct is at the upper limits of jarod l measuring 1.0 cm. Kidneys: No masses are evident. No hydronephrosis is present. No cysts are present. Delayed images were obtained through the kidneys, which remain unremarkable. Aorta: Vascular calcification is within the aorta. Inferior vena cava: Normal. CT PELVIS: Loops of bowel within the abdomen and pelvis are normal. Study is without oral contrast limiting bowel evaluation. Appendix: Not identified. No suspicious inflammatory changes are evident. Urinary bladder: Normal. Genitourinary structures: Uterus and adnexal regions appear within normal limits. No free fluid is wi thin the pelvis. Osseous structures: No suspicious lytic or sclerotic lesions. IMPRESSIONS: 1. No suspicious etiology to account for right upper quadrant pain.
[2018-01-11 08:44] VITALS: BP 153/67; PULSE 58; RESP 16; TEMP 98.8
== END 2018-01-11 08:43 | disposition home or self-care (01) ==
LOC: EC 04:30
DX: R10.11 Right upper quadrant pain (principal); R10.12 Left upper quadrant pain; R10.13 Epigastric pain; R11.0 Nausea; E78.5 Hyperlipidemia, unspecified; I10 Essential (primary) hypertension; Z87.891 Personal history of nicotine dependence; Z79.899 Other long term (current) drug therapy; Z90.49 Acquired absence of other specified parts of digestive tract
CPT/HCPCS: 36415; 80053; 82150; 83690; 85025; 81001; 74018; 74177; 87086; 99284; 96374; 96375; 96361 ×2; J2405; J2270; Q9967

== ENCOUNTER → 2018-01-11 | Outpatient (CLI) | payer OTHER ==
[2018-01-11 16:25] VITALS: BP 117/56; PULSE 64; TEMP 98.4; BMI 38.0
--- NOTE | 2018-01-12 11:07 | P.HPBAR ---
Bariatric H&P - History & Physicial H&P Date: 01/11/18 History & Physicial: Visit/CC: follow up visit Patient initial contact: Initial weight: 102.058 kg Initial weight in pounds: 225.00 Height: 5 ft 3.25 in Initial BMI: 39.5 Last weight: Current weight: 98.157 kg Current weight in pounds: 216.40 Current BMI: 38.0 [place] body weight (based on NIH guidelines): 52.73 kg Excess body weight loss: 7.9% The patient is a 57 year-old F who presents for Bariatric Assessment. Patient resents today for sleeve gastrectomy follow-up. Patient states that she has developed intermittent right upper quadrant epigastric pain. She that she see in the emergency room today. Her workup including CAT scan labs were normal. Patient states her pain is resolved currently. She's had minimal GERD. Past Medical History Past Medical History: GERD/Reflux, Hyperlipidemia, Hypertension, Osteoarthritis (OA) Additional Past Medical History / Comment(s): CURRENT: SEVERE REFLUX. lesions on thyroid- is being watched History of Any Multi-Drug Resistant Organisms: None Reported Past Surgical History: Section, Cholecystectomy, Tubal Ligation Additional Past Surgical History / Comment(s): 12.7.17 GASTRIC SLEEVE Past Anesthesia/Blood Transfusion Reactions: No Reported Reaction Additional Past Anesthesia/Blood Transfusion Reaction / Comm: no hx blood transfusion. Past Psychological History: No Psychological Hx Reported Smoking Status: Former smoker Past Alcohol Use History: Occasional Additional Past Alcohol Use History / Comment(s): quit smoking 2005, smoked for 30 yrs. 1ppd Past Drug Use History: None Reported - Past Family History Mother Family Medical History: No Reported History Surgical - Exam Vital Signs Temp Pulse BP 98.4 F 64 117/56 01/11/18 16:20 01/11/18 16:20 01/11/18 16:20 - General well developed, well nourished, no distress - Eyes PERRL - Abdomen Abdomen: soft, non tender Bariatric Assessment & Plan Plan: Intermittent epigastric right upper quadrant pain. Patient will be scheduled for EGD to evaluate for gastritis. Her GERD is minimal. Bariatric Checklist Checklist: Plan: Checklist: EGD: 1. Hiatal hernia: 2. H. Pylori: HgbA1c: Vitamin D: Smoking: Former smoker Primary care physician referral: Dr Farrar Psychiatry clearance: Cardiology clearance: Sleep study: Diet journal: VTE risk score: VTE risk level: Rehab needs at discharge:
== END | disposition home or self-care (01) ==
LOC: BARWHC3 12:54
PROVIDERS: ATTEND Surgery
DX: Z48.815 Encounter for surgical aftercare following surgery on the digestive system (principal); R10.13 Epigastric pain; K21.9 Gastro-esophageal reflux disease without esophagitis; Z87.891 Personal history of nicotine dependence
CPT/HCPCS: 99211

== ENCOUNTER 2018-01-20 12:43 | Day surgery (SDC) | payer OTHER ==
[2018-01-15 16:50] VITALS: BMI 36.6
[2018-01-20 13:28] VITALS: RESP 16; TEMP 97.8
[2018-01-20] MEDS ORDERED: PROPOFOL 10 MG/ML 20 ML VIAL IV ONE (14:36)
[2018-01-20] MEDS ORDERED: LIDOCAINE 1% INJ 10MG/ML (20 ML MDV) ONE (14:36)
--- NOTE | 2018-01-20 14:37 | P.GSHP ---
History of Present Illness H&P Date: 01/20/18 Chief Complaint: Right upper quadrant and epigastric pain Asst. 49-year-old female who's had complaints of right quadrant and epigastric pain. She presents today for EGD. Past Medical History Past Medical History: GERD/Reflux, Hyperlipidemia, Hypertension, Osteoarthritis (OA), Sleep Apnea/CPAP/BIPAP Additional Past Medical History / Comment(s): RECENT EPISODE SEVERE RUQ ABD PAIN. USES CPAP. Lesions on thyroid- is being watched. CURRENT PO AB RX FOR UTI. History of Any Multi-Drug Resistant Organisms: None Reported Past Surgical History: Section, Cholecystectomy, Tubal Ligation Additional Past Surgical History / Comment(s): 05.28.17 GASTRIC SLEEVE. EGD, COLONOSCOPY. Past Anesthesia/Blood Transfusion Reactions: No Reported Reaction Additional Past Anesthesia/Blood Transfusion Reaction / Comment(s): no hx blood transfusion. Smoking Status: Former smoker - Past Family History Mother Family Medical History: No Reported History Medications and Allergies Home Medications Medication Instructions Recorded Confirmed Type Simvastatin [Zocor] 20 mg PO DAILY 12/21/16 01/20/18 History Multivitamins, Thera [Multivitamin 1 tab PO PC-SUPPER 05/25/17 01/20/18 History (formulary)] Hydrochlorothiazide 12.5 mg PO QAM 06/30/17 01/20/18 History Pantoprazole Sodium 40 mg PO DAILY 01/15/18 01/20/18 History Sulfamethox-Tmp 800-160Mg [Bactrim 1 tab PO Q12HR 01/15/18 01/20/18 History DS 800-160 mg] Allergies Allergy/AdvReac Type Severity Reaction Status Date / Time No Known Allergies Allergy Verified 01/15/18 16:32 Surgical - Exam Vital Signs Temp Pulse Resp BP Pulse Ox 97.8 F 60 16 130/74 98 01/20/18 13:26 01/20/18 13:26 01/20/18 13:26 01/20/18 13:26 01/20/18 13:26 - General well developed, no distress - Eyes PERRL - ENT normal pinna - Neck no masses - Respiratory normal expansion - Cardiovascular Rhythm: regular - Abdomen Mild right upper quadrant quadrant pain Abdomen: soft Assessment and Plan Assessment: Right upper quadrant pain. We'll perform EGD.
--- NOTE | 2018-01-20 14:45 | P.OP ---
Date of Procedure: 01/20/18 Preoperative Diagnosis: GERD Epigastric pain Postoperative Diagnosis: Antral gastritis Normal sleeve gastrectomy Esophagitis pathology pending Procedure(s) Performed: EGD Anesthesia: MAC Surgeon: Brigido Carmona Pathology: other (Antrum, esophagus) Condition: stable Disposition: PACU Description of Procedure: The patient's placed on the endoscopy table in the lateral position. She received IV sedation. The gastroscope placed oropharynx and passed in the esophagus and into the stomach. Scope was then placed through the pylorus. The first and second portion of the duodenum appeared normal. Scope was then brought back the antrum was mildly inflamed. A biopsies performed. Scope was then brought back. The patient had a previous gastric sleeve. The sleeve appeared to be in the normal orientation without corkscrewing or narrowing. The GE junction was at 40 cm. The distal esophagus appeared mildly inflamed a biopsies performed. The proximal esophagus appeared normal. Scope was withdrawn for patient.
[2018-01-20 15:16] VITALS: BP 139/84; PULSE 65
== END 2018-01-20 15:24 | disposition home or self-care (01) ==
LOC: ORWHC2ENDO 12:43
PROVIDERS: ATTEND Surgery
DX: K29.50 Unspecified chronic gastritis without bleeding (principal); K21.0 Gastro-esophageal reflux disease with esophagitis; Z90.3 Acquired absence of stomach [part of]; E78.5 Hyperlipidemia, unspecified; I10 Essential (primary) hypertension; M19.90 Unspecified osteoarthritis, unspecified site; G47.33 Obstructive sleep apnea (adult) (pediatric); Z99.89 Dependence on other enabling machines and devices; Z79.2 Long term (current) use of antibiotics; Z79.899 Other long term (current) drug therapy; Z90.49 Acquired absence of other specified parts of digestive tract; Z98.51 Tubal ligation status; Z87.891 Personal history of nicotine dependence
CPT/HCPCS: 88305; 43239; J2001; J2704

== ENCOUNTER 2019-07-02 08:40 | Emergency (ER) | payer OTHER ==
[2019-07-02 08:48] VITALS: TEMP 98.5
[2019-07-02] MEDS ORDERED: SODIUM CHLORIDE 0.9% 1,000 ML IV ONE (09:07)
--- NOTE | 2019-07-02 09:37 | ED ---
Abdominal Pain HPI - General Chief Complaint: Abdominal Pain Stated Complaint: Abd Pain Time Seen by Provider: 07/02/19 08:54 Source: patient, RN notes reviewed Mode of arrival: ambulatory Limitations: no limitations - History of Present Illness Initial Comments: 58-year-old female presents emergency Department chief complaint of sudden onset of right flank pain. She has had some wax and wane symptoms last few days. Patient does admit to nausea with the pain is severe. She states the pain has lessened at this time she has no history kidney stones. She does admit that she's had prior cholecystectomy and gastric sleeve. Patient denies any known fever complaints of chills no chest pain or shortness of breath. Has no complaints of dysuria or noted hematuria. - Related Data Home Medications Medication Instructions Recorded Confirmed Simvastatin [Zocor] 20 mg PO DAILY 12/21/16 01/20/18 Multivitamins, Thera [Multivitamin 1 tab PO PC-SUPPER 05/25/17 01/20/18 (formulary)] Hydrochlorothiazide 12.5 mg PO QAM 06/30/17 01/20/18 Pantoprazole Sodium 40 mg PO DAILY 01/15/18 01/20/18 Sulfamethox-Tmp 800-160Mg [Bactrim 1 tab PO Q12HR 01/15/18 01/20/18 DS 800-160 mg] Previous Rx's Medication Instructions Recorded Sucralfate [Carafate] 1 gm PO BID #60 ml 01/20/18 Cephalexin [Keflex] 500 mg PO Q8HR #21 cap 07/02/19 Ketorolac [Toradol] 10 mg PO Q8HR #15 tab 07/02/19 Allergies Allergy/AdvReac Type Severity Reaction Status Date / Time No Known Allergies Allergy Verified 07/02/19 08:48 Review of Systems ROS Statement: Those systems with pertinent positive or pertinent negative responses have been documented in the HPI. ROS Other: All systems not noted in ROS Statement are negative. Past Medical History Past Medical History: GERD/Reflux, Hyperlipidemia, Hypertension, Osteoarthritis (OA), Sleep Apnea/CPAP/BIPAP Additional Past Medical History / Comment(s): RECENT EPISODE SEVERE RUQ ABD PAIN. USES CPAP. Lesions on thyroid- is being watched. CURRENT PO AB RX FOR UTI. History of Any Multi-Drug Resistant Organisms: None Reported Past Surgical History: Section, Cholecystectomy, Tubal Ligation Additional Past Surgical History / Comment(s): 12.7.17 GASTRIC SLEEVE. EGD, COLONOSCOPY. Past Anesthesia/Blood Transfusion Reactions: No Reported Reaction Additional Past Anesthesia/Blood Transfusion Reaction / Comment(s): no hx blood transfusion. Past Psychological History: No Psychological Hx Reported Smoking Status: Former smoker - Past Family History Mother Family Medical History: No Reported History General Exam Limitations: no limitations General appearance: alert, in no apparent distress Head exam: Present: atraumatic, normocephalic, normal inspection Eye exam: Present: normal appearance, PERRL, EOMI. Absent: scleral icterus, conjunctival injection, periorbital swelling ENT exam: Present: normal exam, normal oropharynx, mucous membranes moist Neck exam: Present: normal inspection, full ROM. Absent: tenderness, meningismus, lymphadenopathy Respiratory exam: Present: normal lung sounds bilaterally. Absent: respiratory distress, wheezes, rales, rhonchi, stridor Cardiovascular Exam: Present: regular rate, normal rhythm, normal heart sounds. Absent: systolic murmur, diastolic murmur, rubs, gallop, clicks GI/Abdominal exam: Present: soft, tenderness (Minimal right-sided), normal bowel sounds. Absent: distended, guarding, rebound, rigid Back exam: Absent: CVA tenderness (R), CVA tenderness (L) Neurological exam: Present: alert, oriented X3, CN II-XII intact Skin exam: Present: warm, dry, intact, normal color. Absent: rash Course Vital Signs 07/02/19 07/02/19 07/02/19 08:47 09:54 10:45 Temperature 98.5 F Pulse Rate 77 54 L 48 L Respiratory 16 17 17 Rate Blood Pressure 157/86 144/81 155/71 O2 Sat by Pulse 98 97 Oximetry Medical Decision Making - Medical Decision Making CT is unremarkable as show evidence of urinary tract infection. Patient we discharged on antibiotics, return parameters were discussed. - Lab Data Result diagrams: 07/02/19 09:02 07/02/19 09:02 Lab Results 07/02/19 07/02/19 07/02/19 Range/Units 09:02 09:02 09:02 WBC 6.3 (3.8-10.6) k/uL RBC 4.88 (3.80-5.40) m/uL Hgb 14.9 (11.4-16.0) gm/dL Hct 44.4 (34.0-46.0) % MCV 90.9 (80.0-100.0) fL MCH 30.5 (25.0-35.0) pg MCHC 33.5 (31.0-37.0) g/dL RDW 12.4 (11.5-15.5) % Plt Count 162 (150-450) k/uL Neutrophils % 61 % Lymphocytes % 30 % Monocytes % 4 % Eosinophils % 4 % Basophils % 0 % Neutrophils # 3.8 (1.3-7.7) k/uL Lymphocytes # 1.9 (1.0-4.8) k/uL Monocytes # 0.2 (0-1.0) k/uL Eosinophils # 0.2 (0-0.7) k/uL Basophils # 0.0 (0-0.2) k/uL Manual Slide Review Performed RBC Morphology Normal Sodium 141 (137-145) mmol/L Potassium 4.4 (3.5-5.1) mmol/L Chloride 109 H (98-107) mmol/L Carbon Dioxide 27 (22-30) mmol/L Anion Gap 5 mmol/L BUN 10 (7-17) mg/dL Creatinine 0.60 (0.52-1.04) mg/dL Est GFR (CKD-EPI)AfAm >90 (>60 ml/min/1.73 sqM) Est GFR (CKD-EPI)NonAf >90 (>60 ml/min/1.73 sqM) Glucose 90 (74-99) mg/dL Calcium 9.5 (8.4-10.2) mg/dL Total Bilirubin 0.7 (0.2-1.3) mg/dL AST 24 (14-36) U/L ALT 18 (4-34) U/L Alkaline Phosphatase 82 (38-126) U/L Total Protein 6.9 (6.3-8.2) g/dL Albumin 4.1 (3.5-5.0) g/dL Amylase 97 (30-110) U/L Lipase 62 (23-300) U/L Urine Color Light Yellow Urine Appearance Clear (Clear) Urine pH 7.5 (5.0-8.0) Ur Specific [place] 1.009 (1.001-1.035) Urine Protein Negative (Negative) Urine Glucose (UA) Negative (Negative) Urine Ketones Negative (Negative) Urine Blood Negative (Negative) Urine Nitrite Positive H (Negative) Urine Bilirubin Negative (Negative) Urine Urobilinogen <2.0 (<2.0) mg/dL Ur Leukocyte Esterase Trace H (Negative) Urine RBC 1 (0-5) /hpf Urine WBC 3 (0-5) /hpf Ur Squamous Epith Cells <1 (0-4) /hpf Amorphous Sediment Rare H (None) /hpf Urine Bacteria Many H (None) /hpf Urine Mucus Rare H (None) /hpf Disposition Clinical Impression: UTI (urinary tract infection), Flank pain Disposition: HOME SELF-CARE Condition: Stable Instructions (If sedation given, give patient instructions): Abdominal Pain (ED) Additional Instructions: Please return to the Emergency Department if symptoms worsen or any other concerns. Prescriptions: Cephalexin [Keflex] 500 mg PO Q8HR #21 cap Ketorolac [Toradol] 10 mg PO Q8HR #15 tab Is patient prescribed a controlled substance at d/c from ED?: No Referrals: Сергей Farrar DO [Primary Care Provider] - 1-2 days Time of Disposition: 11:48
[2019-07-02 09:41] LABS: ALT 18 U/L (4-34); AST 24 U/L (14-36); African American GFR (CKD) >90 (>60 ml/min/1.73 sqM); Albumin 4.1 g/dL (3.5-5.0); Alkaline Phosphatase 82 U/L (38-126); Amylase 97 U/L (30-110); Anion Gap 5 mmol/L; Blood Urea Nitrogen 10 mg/dL (7-17); Calcium 9.5 mg/dL (8.4-10.2); Carbon Dioxide 27 mmol/L (22-30); Chloride 109 mmol/L (98-107); Glucose 90 mg/dL (74-99); Non-African American GFR(CKD) >90 (>60 ml/min/1.73 sqM); Potassium 4.4 mmol/L (3.5-5.1); Sodium 141 mmol/L (137-145); Total Bilirubin 0.7 mg/dL (0.2-1.3); Total Protein 6.9 g/dL (6.3-8.2)
[2019-07-02 09:48] LABS: Basophils % (A) 0 %; Eosinophils # (A) 0.2 k/uL (0-0.7); Eosinophils % (A) 4 %; HCT 44.4 % (34.0-46.0); HGB 14.9 gm/dL (11.4-16.0); Lymphocytes # (A) 1.9 k/uL (1.0-4.8); Lymphocytes % (A) 30 %; MCH 30.5 pg (25.0-35.0); MCHC 33.5 g/dL (31.0-37.0); MCV 90.9 fL (80.0-100.0); Mean Platelet Volume 11.1; Monocytes # (A) 0.2 k/uL (0-1.0); Monocytes % (A) 4 %; Neutrophils # (A) 3.8 k/uL (1.3-7.7); Neutrophils % (A) 61 %; Platelet Count 162 k/uL (150-450); RBC 4.88 m/uL (3.80-5.40); RDW 12.4 % (11.5-15.5); WBC 6.3 k/uL (3.8-10.6)
[2019-07-02 09:55] VITALS: RESP 17
[2019-07-02 10:02] LABS: Amorphous Sediment,Urine Rare /hpf; Appearance,Urine Clear (Clear); Bacteria,Urine Many /hpf; Bilirubin,Urine Negative (Negative); Blood,Urine Negative (Negative); Color,Urine Light Yellow; Glucose,Urine (UA) Negative (Negative); Ketones,Urine Negative (Negative); Leukocyte Esterase,Urine Trace (Negative); Mucus,Urine Rare /hpf; Nitrite,Urine Positive (Negative); PH, Urine 7.5 (5.0-8.0); Protein,Urine Negative (Negative); RBC,Urine 1 /hpf (0-5); Specific Gravity,Urine 1.009 (1.001-1.035); Squamous Epithelial Cell,Urine <1 /hpf (0-4); Urobilinogen,Urine <2.0 mg/dL (<2.0); WBC,Urine 3 /hpf (0-5)
[2019-07-02 10:46] VITALS: BP 155/71; PULSE 48
[2019-07-02] MEDS ORDERED: cefTRIAXone IN SWFI 1,000 MG/10 ML SYRINGE IVP STA (10:58)
--- NOTE | 2019-07-02 11:27 | CT ---
EXAMINATION TYPE: CT abdomen pelvis wo con DATE OF EXAM: 07/02/2019 COMPARISON: Previous study dated 01/11/2018. HISTORY: Right flankl pain CT DLP: 667.8 mGycm Automated exposure control for dose reduction was used. FINDINGS: Visualized portions of the lungs are clear. There is no pleural or pericardial fluid. The h eart is not enlarged. There has been a previous gastric stapling. The gallbladder has been removed. The liver is prominent measuring 18.4 cm. The spleen is unremarkable. Both adrenal glands are normal. There is no evidence of hydronephrosis or nephrolithiasis. No definite ureterolithiasis is seen. Limited views of the pancreas are normal. There is no significant retroperitoneal, iliac or inguinal adenopathy. There is moderate atheromatous calcification of the visualized arterial tree. The uterus and ovaries appear normal. The bladder is unremarkable. There are scattered diverticula in the sigmoid region without radiographic evidence of diverticulitis . The appendix is unremarkable. Small bowel loops are normal caliber. There is no free fluid and no free air. There is bilateral hypertrophic spondylosis within the dorsal spine. IMPRESSION: 1. NO EVIDENCE OF NEPHROLITHIASIS OR HYDRONEPHROSIS. 2. MILD SPLENOMEGALY. 3. MINIMAL DIVERTICULOSIS OF THE SIGMOID COLON. 4. MILD DEGENERATIVE CHANGES WITHIN THE SPINE.
== END 2019-07-02 12:05 | disposition home or self-care (01) ==
LOC: EC 08:40
DX: N39.0 Urinary tract infection, site not specified (principal); I10 Essential (primary) hypertension; E78.5 Hyperlipidemia, unspecified; K21.9 Gastro-esophageal reflux disease without esophagitis; G47.30 Sleep apnea, unspecified; Z79.899 Other long term (current) drug therapy; Z87.891 Personal history of nicotine dependence; Z99.89 Dependence on other enabling machines and devices; Z90.49 Acquired absence of other specified parts of digestive tract
CPT/HCPCS: 36415; 80053; 82150; 83690; 85025; 81001; 74176; 99284; 96374; 96361; J0696

== ENCOUNTER → 2019-07-11 | Outpatient (CLI) | payer OTHER ==
[2019-07-11 13:24] VITALS: BP 121/65; PULSE 95; TEMP 98.2; BMI 34.2
--- NOTE | 2019-07-11 14:16 | P.HPBAR ---
Bariatric H&P - History & Physicial H&P Date: 07/11/19 History & Physicial: Visit/CC: annual sleeve follow up Patient initial contact: Initial weight: 102.058 kg Initial weight in pounds: 225.00 Height: 4 ft 9.5 in Initial BMI: 47.8 Last weight: Current weight: 73.028 kg Current weight in pounds: 161.00 Current BMI: 34.2 [place] body weight (based on NIH guidelines): 39.689 kg Excess body weight loss: 46.5% The patient is a 59 year-old F who presents for Bariatric Assessment. Patient presents today for sleeve gastrectomy follow-up. She is doing quite well. She's loss another 15 pounds her last visit. She has some mild GERD. Past Medical History Past Medical History: GERD/Reflux, Hyperlipidemia, Hypertension, Osteoarthritis (OA), Sleep Apnea/CPAP/BIPAP Additional Past Medical History / Comment(s): RECENT EPISODE SEVERE RUQ ABD PAIN. USES CPAP. Lesions on thyroid- is being watched. CURRENT PO AB RX FOR UTI. History of Any Multi-Drug Resistant Organisms: None Reported Past Surgical History: Section, Cholecystectomy, Tubal Ligation Additional Past Surgical History / Comment(s): 05.28.17 GASTRIC SLEEVE. EGD, COLONOSCOPY. Past Anesthesia/Blood Transfusion Reactions: No Reported Reaction Additional Past Anesthesia/Blood Transfusion Reaction / Comm: no hx blood ron sfusion. Past Psychological History: No Psychological Hx Reported Smoking Status: Former smoker Past Alcohol Use History: Occasional Additional Past Alcohol Use History / Comment(s): quit smoking 2008, smoked for 30 yrs, 1ppd Past Drug Use History: None Reported - Past Family History Mother Family Medical History: No Reported History Surgical - Exam Vital Signs Temp Pulse BP 98.2 F 95 121/65 07/11/19 13:11 07/11/19 13:11 07/11/19 13:11 - General well developed, well nourished, no distress - Eyes PERRL - ENT normal pinna - Neck no masses - Respiratory normal expansion - Cardiovascular Rhythm: regular - Abdomen Abdomen: soft, non tender Bariatric Assessment & Plan Plan: Status post sleeve inserted. Patient is doing quite well. Her GERD is minimal only observed. She was scheduled for screening colonoscopy. Bariatric Checklist Checklist: Plan: Checklist: EGD: 1. Hiatal hernia: 2. H. Pylori: HgbA1c: Vitamin D: Smoking: Former smoker Primary care physician referral: Dr Farrar Psychiatry clearance: Cardiology clearance: Sleep study: Diet journal: VTE risk score: VTE risk level: Rehab needs at discharge:
== END | disposition home or self-care (01) ==
LOC: BARWHC3 12:58
PROVIDERS: ATTEND Surgery
DX: Z48.815 Encounter for surgical aftercare following surgery on the digestive system (principal); K21.9 Gastro-esophageal reflux disease without esophagitis; Z87.891 Personal history of nicotine dependence; Z90.49 Acquired absence of other specified parts of digestive tract; Z98.51 Tubal ligation status
CPT/HCPCS: 99211

== ENCOUNTER 2021-03-12 09:49 | Emergency (ER) | payer BC ==
[2021-03-12 10:07] VITALS: BP 155/90; PULSE 55; RESP 18; TEMP 98.7
--- NOTE | 2021-03-12 11:09 | ED ---
General Adult HPI - General Chief complaint: Back Pain/Injury Stated complaint: Back/Shoulder Pain Time Seen by Provider: 03/12/21 10:22 Source: patient, RN notes reviewed Mode of arrival: ambulatory Limitations: no limitations - History of Present Illness Initial comments: 60-year-old female presents to the emergency room for a chief complaint of back and rib pain. 2 days ago patient was picked up by a a family member at her sister's reunion. States they went in with a strong hug and when they lifted her she felt a pain in her upper back and right-sided ribs. Patient states over the past couple days the pain has progressed. This morning she went to take a drink of her coffee and when she lifted her arm felt a sharp pain in the right side of her ribs. Patient states when she is sitting still she has no pain but with movement she does have pain. Patient does not want anything for pain at this time.Patient has no other complaints at this time including shortness of breath, chest pain, abdominal pain, nausea or vomiting, headache, or visual changes. - Related Data Home Medications Medication Instructions Recorded Confirmed Aspirin 81 mg PO DAILY 07/11/19 07/11/19 Cholecalciferol (Vitamin D3) 1,000 unit PO DAILY 07/11/19 07/11/19 [Vitamin D3] Losartan [Cozaar] 25 mg PO DAILY 07/11/19 07/11/19 Multivitamins, Thera [Multivitamin 1 tab PO DAILY 07/11/19 07/11/19 (formulary)] Previous Rx's Medication Instructions Recorded Lidocaine 5% Patch [Lidoderm 5% 1 patch TOPICAL DAILY PRN 20 Days 03/12/21 Patch] #20 patch Allergies Allergy/AdvReac Type Severity Reaction Status Date / Time No Known Allergies Allergy Verified 03/12/21 10:07 Review of Systems ROS Statement: Those systems with pertinent positive or pertinent negative responses have been documented in the HPI. ROS Other: All systems not noted in ROS Statement are negative. Past Medical History Past Medical History: GERD/Reflux, Hyperlipidemia, Hypertension, Osteoarthritis (OA), Sleep Apnea/CPAP/BIPAP Additional Past Medical History / Comment(s): RECENT EPISODE SEVERE RUQ ABD PAIN. USES CPAP. Lesions on thyroid- is being watched. CURRENT PO AB RX FOR UTI. History of Any Multi-Drug Resistant Organisms: None Reported Past Surgical History: Section, Cholecystectomy, Tubal Ligation Additional Past Surgical History / Comment(s): 12.7.17 GASTRIC SLEEVE. EGD, COLONOSCOPY. Past Anesthesia/Blood Transfusion Reactions: No Reported Reaction Additional Past Anesthesia/Blood Transfusion Reaction / Comment(s): no hx blood transfusion. Past Psychological History: No Psychological Hx Reported Smoking Status: Former smoker Past Alcohol Use History: Occasional Past Drug Use History: None Reported - Past Family History Mother Family Medical History: No Reported History General Exam Limitations: no limitations General appearance: alert, in no apparent distress Head exam: Present: atraumatic Eye exam: Present: normal appearance, PERRL, EOMI. Absent: scleral icterus, conjunctival injection ENT exam: Present: normal exam, mucous membranes moist Neck exam: Present: normal inspection, full ROM. Absent: tenderness Respiratory exam: Present: normal lung sounds bilaterally, chest wall tenderness (Right-sided chest wall tenderness noted). Absent: respiratory distress, wheezes Cardiovascular Exam: Present: regular rate, normal rhythm, normal heart sounds GI/Abdominal exam: Present: soft, normal bowel sounds. Absent: distended, tenderness Extremities exam: Present: normal capillary refill (Capillary refill less than 2 seconds, radial pulse 2+ right upper extremity). Absent: full ROM (90 flexion and abduction of the right shoulder before eliciting pain on the right ribs) Back exam: Present: vertebral tenderness (Mild thoracic spine tenderness around T6) Course Vital Signs 03/12/21 10:02 Temperature 98.7 F Pulse Rate 55 L Respiratory 18 Rate Blood Pressure 155/90 O2 Sat by Pulse 96 Oximetry Medical Decision Making - Medical Decision Making Vitals are stable. Patient is well-appearing. Patient has no pain at rest, only with movement. HPI and physical exam as documented. X-ray thoracic spine x-ray shows no acute changes. Right-sided rib x-ray shows a normal ribs. Pain likely related to intercostal muscle strain. Patient does not want anything for pain. Return and care parameters discussed. She will take Motrin and Tylenol for pain. We will give lidocaine patches. She'll follow-up with her doctor. She will return for any worsening symptoms. Disposition Clinical Impression: Rib pain, Intercostal muscle strain Disposition: HOME SELF-CARE Condition: Good Instructions (If sedation given, give patient instructions): Rib Contusion (ED) Additional Instructions: Please take Motrin and Tylenol for pain. Use lidocaine patch as needed. Follow-up with your doctor in one to 2 days. Return to the emergency room for any worsening symptoms. Prescriptions: Lidocaine 5% Patch [Lidoderm 5% Patch] 1 patch TOPICAL DAILY PRN 20 Days #20 patch PRN Reason: Pain Is patient prescribed a controlled substance at d/c from ED?: No Referrals: Сергей Farrar DO [Primary Care Provider] - 1-2 days Time of Disposition: 12:36
--- NOTE | 2021-03-12 11:51 | XR ---
EXAMINATION TYPE: XR thoracic spine complete DATE OF EXAM: 03/12/2021 COMPARISON: None HISTORY: Pain TECHNIQUE: 3 view thoracic spine FINDINGS: There appear to be 12 thoracic type vertebral bodies. Pedicles are intact. Vertebral body h eights are preserved. Alignment is preserved. Disc heights appear preserved. No suspicious acute sauer ges. IMPRESSION: 1. No suspicious acute changes thoracic spine.
--- NOTE | 2021-03-12 11:59 | XR ---
EXAMINATION TYPE: XR ribs RT w pa chest xray DATE OF EXAM: 03/12/2021 COMPARISON: Chest x-ray 08/26/2012 HISTORY: Pain TECHNIQUE: AP chest 2 views right ribs FINDINGS: Heart size normal. Pulmonary vasculature is normal. Lungs are clear. No pneumothorax is ofe dent. No displaced rib fractures are evident. IMPRESSION: 1. Normal right ribs
== END 2021-03-12 12:43 | disposition home or self-care (01) ==
LOC: EC 09:49
DX: S29.011A Strain of muscle and tendon of front wall of thorax, initial encounter (principal); K21.9 Gastro-esophageal reflux disease without esophagitis; E78.5 Hyperlipidemia, unspecified; I10 Essential (primary) hypertension; M19.90 Unspecified osteoarthritis, unspecified site; Z79.82 Long term (current) use of aspirin; Z90.49 Acquired absence of other specified parts of digestive tract; Z98.51 Tubal ligation status; Z87.891 Personal history of nicotine dependence; X50.0XXA Overexertion from strenuous movement or load, initial encounter
CPT/HCPCS: 72072; 99283

== ENCOUNTER → 2022-06-26 | Outpatient (CLI) | payer BC ==
--- NOTE | 2022-06-26 10:50 | FL ---
EXAMINATION TYPE: FL UGI air w esophagus DATE OF EXAM: 06/26/2022 COMPARISON: 06/29/2017 HISTORY: 61-year-old female K2 1.9, GERD, history of sleeve gastrectomy in 2017. Reflux, nausea, and vomiting worsening over the last 1.5 years. TECHNIQUE: A single contrast esophagram and UGI study is performed. A total of 2 minutes 57 seconds of fluoroscopic time was utilized during procedure and 85 images obtained. FINDINGS: The swallowing mechanism is normal and hypopharyngeal anatomy is preserved. There is prompt passage of contrast from the esophagus into the proximal stomach. Normal course and c aliber of the upper and mid thoracic esophagus. There is slight mucosal irregularity of the distal es ophagus but no abnormal fixed narrowing identified. There is a small hiatal hernia demonstrated. Valsalva and positional maneuvers results in severe gastroesophageal reflux into the upper chest. There are postsurgical changes of sleeve gastrectomy. The surgerized stomach shows normal position an d otherwise no gross abnormality. The duodenal C-loop appears within normal limits. IMPRESSION: 1. Small hiatal hernia with severe gastroesophageal reflux. 2. Mucosal irregularity at the distal esophagus could reflect underlying esophagitis and shallow ulce rations. Recommend direct visualization to further evaluate. No abnormal fixed narrowing to clearly i ndicate a stricture. 3. Otherwise, unremarkable appearance to the sleeve gastrectomy.
== END | disposition home or self-care (01) ==
LOC: RADUSWWP 07:56
PROVIDERS: ATTEND Surgery
DX: K21.9 Gastro-esophageal reflux disease without esophagitis (principal); K44.9 Diaphragmatic hernia without obstruction or gangrene
CPT/HCPCS: 74246

== ENCOUNTER 2022-07-07 12:16 | Day surgery (SDC) | payer BC ==
[2022-07-02 16:05] VITALS: BMI 36.6
[~2022-07-07 12:16] MED LIST changes: +LIDOCAINE 1% (10MG/ML) FOR IV START INTRADERMA PRN; -LIDOCAINE 1% 20 ML VIAL (10MG/ML) FOR IV START INTRADERMA PRN
[2022-07-07] MEDS ORDERED: LACTATED RINGERS 1,000 ML IV ONE (13:05)
[2022-07-07 13:09] VITALS: RESP 16; TEMP 97.6
[2022-07-07] MEDS ORDERED: LIDOCAINE 2% INJ 20 MG/ML (2 ML VIAL) ONE (13:43)
[2022-07-07] MEDS ORDERED: PROPOFOL 10 MG/ML 20 ML VIAL IV ONE (13:43)
--- NOTE | 2022-07-07 13:44 | P.GSHP ---
History of Present Illness H&P Date: 07/07/22 Chief Complaint: GERD This 62-year-old female been safe for EGD. Patient's condition with GERD. Past Medical History Past Medical History: GERD/Reflux, Hyperlipidemia, Hypertension, Osteoarthritis (OA), Sleep Apnea/CPAP/BIPAP Additional Past Medical History / Comment(s): USES CPAP. Lesions on thyroid- is being watched. HIATAL HERNIA History of Any Multi-Drug Resistant Organisms: None Reported Past Surgical History: Section, Cholecystectomy, Tubal Ligation Additional Past Surgical History / Comment(s): 12.7.17 GASTRIC SLEEVE. EGD, COLONOSCOPY. Past Anesthesia/Blood Transfusion Reactions: No Reported Reaction Additional Past Anesthesia/Blood Transfusion Reaction / Comment(s): no hx blood transfusion. Smoking Status: Former smoker - Past Family History Mother Family Medical History: No Reported History Medications and Allergies Home Medications Medication Instructions Recorded Confirmed Type Losartan [Cozaar] 25 mg PO HS 07/11/19 07/07/22 History Atorvastatin [Lipitor] 10 mg PO HS 07/02/22 07/07/22 History Ergocalciferol [Vitamin D2 (1250 1,250 mcg PO BEAL 07/02/22 07/07/22 History Mcg = 59514 Iu)] Pantoprazole [Protonix] 40 mg PO HS 07/02/22 07/07/22 History Viracid-Mvi 1 tab PO HS 07/02/22 07/07/22 History Allergies Allergy/AdvReac Type Severity Reaction Status Date / Time No Known Allergies Allergy Verified 07/07/22 12:50 Surgical - Exam Vital Signs Temp Pulse Resp BP Pulse Ox 97.6 F 70 16 178/87 93 L 07/07/22 13:05 07/07/22 13:05 07/07/22 13:05 07/07/22 13:05 07/07/22 13:05 - General well developed, well nourished, no distress - Eyes PERRL - ENT normal pinna - Neck no masses - Respiratory normal expansion - Cardiovascular Rhythm: regular - Abdomen Abdomen: soft, non tender Assessment and Plan Assessment: GERD. We'll perform EGD.
--- NOTE | 2022-07-07 13:51 | P.OP ---
Date of Procedure: 07/07/22 Preoperative Diagnosis: GERD Postoperative Diagnosis: Antral gastritis Hiatal hernia Esophagitis Procedure(s) Performed: EGD Anesthesia: MAC Surgeon: Brigido Carmona Pathology: other (Antrum, esophagus) Condition: stable Disposition: PACU Description of Procedure: Patient's placed on the endoscopy table in the lateral position her she received IV sedation. The gastric was placed oropharynx passed in the esophagus into the stomach. Scope was then placed through the pylorus. First and second portion of the duodenum appeared normal. Scope was then brought back the antrum and this was mildly inflamed. A biopsies performed. The scope was unretroflexed and remainder the stomach appeared normal. Patient previous gastric sleeve. At the level of the GE junction there was a hiatal hernia. The GE junction was at 39 cm per the distal esophagus appeared inflamed. This was biopsied. The proximal esophagus appeared normal. Scope withdrawn for patient.
[2022-07-07 14:12] VITALS: BP 130/85; PULSE 57
== END 2022-07-07 14:40 | disposition home or self-care (01) ==
LOC: ORWHC2ENDO 12:16
PROVIDERS: ATTEND Surgery
DX: K29.50 Unspecified chronic gastritis without bleeding (principal); K44.9 Diaphragmatic hernia without obstruction or gangrene; K21.00 Gastro-esophageal reflux disease with esophagitis, without bleeding; I10 Essential (primary) hypertension; E78.5 Hyperlipidemia, unspecified; M19.90 Unspecified osteoarthritis, unspecified site; Z87.891 Personal history of nicotine dependence; G47.30 Sleep apnea, unspecified; Z90.49 Acquired absence of other specified parts of digestive tract
CPT/HCPCS: 43239

== ENCOUNTER → 2022-07-15 | Outpatient (CLI) | payer BC ==
[2022-07-16 01:42] LABS: Basophils # (A) 0.03 X 10*3/uL (0.00-0.10); Basophils % (A) 0.4 %; Eosinophils # (A) 0.25 X 10*3/uL (0.04-0.35); Eosinophils % (A) 3.1 %; HCT 43.9 % (37.2-46.3); HGB 13.5 g/dL (12.0-15.0); Immature Grans, Automated 0.3 %; Lymphocytes # (A) 1.87 X 10*3/uL (0.90-5.00); Lymphocytes % (A) 23.4 %; MCH 29.1 pg (27.0-32.0); MCHC 30.8 g/dL (32.0-37.0); MCV 94.6 fL (80.0-97.0); Mean Platelet Volume 12.6 fL (9.5-12.2); Monocytes # (A) 0.52 X 10*3/uL (0.20-1.00); Monocytes % (A) 6.5 %; NRBC Per 100 WBC 0 /100 WBCS (0.0-0.0); Neutrophils # (A) 5.29 X 10*3/uL (1.80-7.70); Neutrophils % (A) 66.3 %; Platelet Count 150 X 10*3/uL (140-440); RBC 4.64 X 10*6/uL (4.10-5.20); RDW 13.3 % (11.5-14.5); WBC 7.98 X 10*3/uL (4.50-10.00)
== END | disposition home or self-care (01) ==
LOC: LABPAT 14:18
PROVIDERS: ATTEND Surgery
DX: Z01.818 Encounter for other preprocedural examination (principal); K21.9 Gastro-esophageal reflux disease without esophagitis; R94.31 Abnormal electrocardiogram [ECG] [EKG]
CPT/HCPCS: 36415; 85025; 93005

== ENCOUNTER → 2023-07-07 | Outpatient (CLI) | payer BC ==
--- NOTE | 2023-07-07 14:31 | MM ---
Reason for Exam: Screening (asymptomatic). Last mammogram was performed 5 year(s) and 9 month(s) ago. Patient History: Menarche at age 12. First Full-Term at age 18. Postmenopausal. Patient has history of breast feeding. Maternal grandmother had breast cancer. Risk Values: Ciarra 5 year model risk: 1.2%. NCI Lifetime model risk: 4.7%. Prior Study Comparison: 04/17/2010 Bilateral Screening Mammogram, [facility]. 05/02/2011 Bilateral Screening Mammogram, [facility]. 05/08/2016 Bilateral Screening Mammogram, [facility]. 10/07/2017 Bilateral Diagnostic Mammogram, [facility]. Tissue Density: There are scattered fibroglandular densities. Findings: Analyzed By CAD. There is no suspicious group of microcalcifications or new suspicious mass. Overall Assessment: Negative, BI-RAD 1 Management: Screening Mammogram of both breasts in [address] [facility] will attempt to contact patient to return for supplemental views and ultrasound if indicated. Patient should continue monthly self-breast exams. A clinical breast exam by your physician is recommended on an annual basis. This exam should not preclude additional follow-up of suspicious palpable abnormalities. Note on Ciarra scores and lifetime risk: 1. A Ciarra score greater than 3% is considered moderate risk. If this is the case, consider specialist referral to assess eligibility for a risk reducing agent. 2. If overall lifetime risk for the development of breast cancer is 20% or higher, the patient may qualify for future screening with alternating mammogram and breast MRI. Electronically signed and approved by: Avila Armijo DO
== END | disposition home or self-care (01) ==
LOC: RADMAMWWP 09:35
PROVIDERS: ATTEND Family Medicine
DX: Z12.31 Encounter for screening mammogram for malignant neoplasm of breast (principal); Z78.0 Asymptomatic menopausal state; Z80.3 Family history of malignant neoplasm of breast
CPT/HCPCS: 77063; 77067